=== PATIENT | female | born 1955 | race Caucasian/White ===

== ENCOUNTER → 2016-11-19 | Outpatient (CLI) | payer BC ==
[~2016-11-19] MED LIST: ATROPINE SULFATE 0.1 MG/ML 10ML SYRINGE ONE; DOBUTamine DRIP for NUC MED 500 MG in DEXTROSE/WATER 1 250ML.BAG IV ONE; METOPROLOL TARTRATE 5 MG/5 ML VIAL IVP ONE
--- NOTE | 2016-11-19 17:42 | ECHOS ---
DATE OF SERVICE: 11/19/2016 AGE: 60Y SEX: F HT: 5' 10" WT: 220 lbs. Protocol Ethan: Others: Dobutamine stress echo Stage: 30 mcg/kg per minute Dur. of Exercise: 7:45 *Heart Rate Blood Pressure *Rest: 61 Rest: 101/54 * *Max. Achieved: 146 Maximum BP: 95/37 85% PMHR: 134 100% PMHR: 158 *METS: INDICATIONS: Chest pain. MEDICATIONS: Nitroglycerin, metoprolol, clopidogrel, bisulfate, atorvastatin, isosorbide, Lisinopril, Advair, Zyrtec, Farxiga, escitalopram, Flonase. STRESS DATA: Pre-testing physical examination showed heart rate of 61, pressure 101/ ( ) mmHg. Baseline EKG showed sinus mechanism. Ten micrograms per kilogram per minute of Dobutamine was initially and increased to 30 mcg/kg per minute. We gave the patient 2 mg of atropine to enhance the heart rate. With dobutamine and atropine the patient achieved a maximum heart rate of 146, which is about 100% of maximum predicted heart rate. Maximum blood pressure was 95/37 mmHg. Clinically the patient did not have any symptoms of chest pain or discomfort. The EKG showed about 0.5 mm down ( ) ST-segment changes. ECHOCARDIOGRAM IMAGES: Echocardiogram images from parasternal long axis view, parasternal short axis view, apical 4 chambers and apical 2-chamber view were obtained as the baseline images at low-dose dobutamine infusion, at peak heart rate, as well as on recovery. The echocardiogram images showed good augmentation in the left ventricular systolic function without any evidence of wall motion abnormalities consistent with ischemia. CONCLUSION: 1. Mild EKG changes in response to dobutamine. 2. Normal echocardiogram in response to dobutamine.
== END | disposition home or self-care (01) ==
LOC: RADNMMAIN 10:09
PROVIDERS: ATTEND Family Medicine
DX: I25.10 Atherosclerotic heart disease of native coronary artery without angina pectoris (principal)
CPT/HCPCS: 93017; 93350; J1250

== ENCOUNTER → 2016-11-29 | Outpatient (CLI) | payer BC ==
--- NOTE | 2016-12-02 09:14 | MM ---
Reason for exam: screening (asymptomatic). Last mammogram was performed 1 year and 1 month ago. History: Patient is postmenopausal. Family history of breast cancer in mother at age 65. Benign US LT VAD breast biopsy of the left breast, October 07, 2013. Benign US RT VAD breast biopsy of the right breast, August 04, 2012. Benign US LT VAD breast biopsy of the left breast, August 04, 2012. Benign excisional biopsy of the left breast. Physical Findings: A clinical breast exam by your physician is recommended on an annual basis and results should be correlated with mammographic findings. MG Screening Mammo w CAD Bilateral CC and MLO view(s) were taken. Prior study comparison: October 24, 2015, bilateral MG 3d diag mammo w/cad [facility]. September 28, 2014, bilateral MG diagnostic mammo w CAD [facility]. The breast tissue is heterogeneously dense. This may lower the sensitivity of mammography. Stable lymph node in the left axilla. No significant changes when compared with prior studies. ASSESSMENT: Benign, BI-RAD 2 RECOMMENDATION: Routine screening mammogram of both breasts in 1 year.
== END | disposition home or self-care (01) ==
LOC: RADMAMWWP 07:08
PROVIDERS: ATTEND Family Medicine
DX: Z12.31 Encounter for screening mammogram for malignant neoplasm of breast (principal)

== ENCOUNTER → 2018-01-20 | Outpatient (CLI) | payer BC ==
--- NOTE | 2018-01-21 11:18 | MM ---
Reason for exam: screening (asymptomatic). Last mammogram was performed 1 year and 2 months ago. History: Patient is postmenopausal. Family history of breast cancer in mother at age 65. Benign US LT VAD breast biopsy of the left breast, October 07, 2013. Benign US RT VAD breast biopsy of the right breast, August 04, 2012. Benign US LT VAD breast biopsy of the left breast, August 04, 2012. Benign excisional biopsy of the left breast. Physical Findings: A clinical breast exam by your physician is recommended on an annual basis and results should be correlated with mammographic findings. MG Screening Mammo w CAD Bilateral CC and MLO view(s) were taken. Prior study comparison: November 29, 2016, bilateral MG screening mammo w CAD. October 24, 2015, bilateral MG 3d diag mammo w/cad [facility]. The breast tissue is heterogeneously dense. This may lower the sensitivity of mammography. Finding: There are typically benign round calcifications in both breasts. Previous mammotome biopsy in the right and left breast x 2. There is a chronic nodularity bilaterally. There is no discrete abnormality. ASSESSMENT: Benign, BI-RAD 2 RECOMMENDATION: Routine screening mammogram of both breasts in 1 year.
== END | disposition home or self-care (01) ==
LOC: RADMAMWWP 09:56
PROVIDERS: ATTEND Family Medicine
DX: Z12.31 Encounter for screening mammogram for malignant neoplasm of breast (principal)
CPT/HCPCS: 77067

== ENCOUNTER → 2018-07-14 | Outpatient (CLI) | payer BC ==
[2018-07-14 13:43] LABS: ALT 66 U/L (9-52); AST 36 U/L (14-36); Cholesterol 176 mg/dL (<200); HDL Cholesterol 36 mg/dL (40-60); LDL Cholesterol,Calculated 90 mg/dL (0-99); Triglycerides 250 mg/dL (<150)
== END ==
LOC: LABWHC1 12:50
PROVIDERS: ATTEND Internal Medicine Cardiovascular Disease
DX: E78.2 Mixed hyperlipidemia (principal)
CPT/HCPCS: 36415; 80061; 84450; 84460

== ENCOUNTER → 2019-02-16 | Outpatient (CLI) | payer MEDICARE ==
--- NOTE | 2019-02-17 10:47 | MM ---
Reason for exam: screening (asymptomatic). Last mammogram was performed 1 year and 1 month ago. History: Patient is postmenopausal. Family history of breast cancer in mother at age 65. Benign US LT VAD breast biopsy of the left breast, October 07, 2013. Benign US RT VAD breast biopsy of the right breast, August 04, 2012. Benign US LT VAD breast biopsy of the left breast, August 04, 2012. Benign excisional biopsy of the left breast. Physical Findings: A clinical breast exam by your physician is recommended on an annual basis and results should be correlated with mammographic findings. MG Screening Mammo w CAD Bilateral CC and MLO view(s) were taken. Prior study comparison: January 20, 2018, bilateral MG screening mammo w CAD. November 29, 2016, bilateral MG screening mammo w CAD. The breast tissue is heterogeneously dense. This may lower the sensitivity of mammography. Stable benign calcifications. There is chronic nodularity bilaterally. There is no discrete abnormality. No significant changes when compared with prior studies. ASSESSMENT: Benign, BI-RAD 2 RECOMMENDATION: Routine screening mammogram of both breasts in 1 year.
== END | disposition home or self-care (01) ==
LOC: RADMAMWWP 11:26
PROVIDERS: ATTEND Family Medicine
DX: Z12.31 Encounter for screening mammogram for malignant neoplasm of breast (principal)
CPT/HCPCS: 77067

== ENCOUNTER → 2020-07-25 | Outpatient (CLI) | payer MEDICARE ==
--- NOTE | 2020-07-27 11:28 | MM ---
Reason for exam: screening (asymptomatic). Last mammogram was performed 1 year and 5 months ago. History: Patient is postmenopausal. Family history of breast cancer in mother at age 65. Benign US LT VAD breast biopsy of the left breast, October 07, 2013. Benign US RT VAD breast biopsy of the right breast, August 04, 2012. Benign US LT VAD breast biopsy of the left breast, August 04, 2012. Benign excisional biopsy of the left breast. Physical Findings: A clinical breast exam by your physician is recommended on an annual basis and results should be correlated with mammographic findings. MG 3D Screening Mammo W/Cad Bilateral CC and MLO view(s) were taken. Prior study comparison: February 16, 2019, bilateral MG screening mammo w CAD. January 20, 2018, bilateral MG screening mammo w CAD. There are scattered fibroglandular densities. Finding #1: There are circumscribed round oval masses in both breasts. Finding #2: There are calcifications in both breasts. No significant changes in finding since February 16, 2019 and January 20, 2018. ASSESSMENT: Benign, BI-RAD 2 RECOMMENDATION: Routine screening mammogram of both breasts in 1 year.
== END | disposition home or self-care (01) ==
LOC: RADMAMWWP 15:09
DX: Z12.31 Encounter for screening mammogram for malignant neoplasm of breast (principal)
CPT/HCPCS: 77063; 77067

== ENCOUNTER → 2021-08-23 | Outpatient (CLI) | payer MEDICARE ==
--- NOTE | 2021-08-27 10:00 | MM ---
Reason for exam: screening (asymptomatic). Last mammogram was performed 1 year and 1 month ago. History: Patient is postmenopausal. Family history of breast cancer in mother at age 65. Benign US LT VAD breast biopsy of the left breast, October 07, 2013. Benign US RT VAD breast biopsy of the right breast, August 04, 2012. Benign US LT VAD breast biopsy of the left breast, August 04, 2012. Benign excisional biopsy of the left breast. Physical Findings: A clinical breast exam by your physician is recommended on an annual basis and results should be correlated with mammographic findings. MG 3D Screening Mammo W/Cad Bilateral CC and MLO view(s) were taken. XCCL view(s) were taken of the left breast. Prior study comparison: July 25, 2020, bilateral MG 3d screening mammo w/cad. February 16, 2019, bilateral MG screening mammo w CAD. There are scattered fibroglandular densities. Previous mammotome biopsy in the right breast and left breast x 2 with associated axillary nodularity, unchanged. There is chronic nodularity in the right breast. No significant changes when compared with prior studies. ASSESSMENT: Benign, BI-RAD 2 RECOMMENDATION: Routine screening mammogram of both breasts in 1 year.
== END | disposition home or self-care (01) ==
LOC: RADMAMWWP 14:01
PROVIDERS: ATTEND Family Medicine
DX: Z12.31 Encounter for screening mammogram for malignant neoplasm of breast (principal); Z80.3 Family history of malignant neoplasm of breast; Z78.0 Asymptomatic menopausal state
CPT/HCPCS: 77063; 77067

== ENCOUNTER 2021-08-24 06:36 | Day surgery (SDC) | payer MEDICARE ==
[2021-08-22 14:58] VITALS: BMI 29.2
[~2021-08-24 06:36] MED LIST changes: -ATROPINE SULFATE 0.1 MG/ML 10ML SYRINGE ONE; -DOBUTamine DRIP for NUC MED 500 MG in DEXTROSE/WATER 1 250ML.BAG IV ONE; +LACTATED RINGERS 1,000 ML IV SCH; -METOPROLOL TARTRATE 5 MG/5 ML VIAL IVP ONE
[2021-08-24 07:16] LABS: Glucose,Whole Blood 197 mg/dL (75-99)
[2021-08-24 07:16] LABS: Glucose,Whole Blood 181 mg/dL (75-99)
[2021-08-24 07:19] VITALS: RESP 16; TEMP 98.9
[2021-08-24] MEDS ORDERED: LIDOCAINE 1% (10MG/ML) FOR IV START INTRADERMA ONE (07:20)
[2021-08-24] MEDS ORDERED: PROPOFOL 10 MG/ML 20 ML VIAL IV ONE (07:27)
[2021-08-24] MEDS ORDERED: LIDOCAINE 1% INJ 10MG/ML (20 ML MDV) ONE (07:27)
--- NOTE | 2021-08-24 07:53 | P.PCN ---
Date of Procedure: 08/24/21 Procedure(s) Performed: BRIEF HISTORY: Patient is a 65-year-old pleasant white female scheduled for an elective colonoscopy as a part of screening for colorectal neoplasia. She has strong family history of colon cancer diagnosed in her father and paternal grandfather in his 60s and 70s respectively. PROCEDURE PERFORMED: Colonoscopy with biopsy and snare polypectomy. PREOPERATIVE DIAGNOSIS: Screening for colon cancer/family history of colon cancer. IV sedation per Anesthesia. PROCEDURE: After informed consent was obtained, the patient, was brought into the endoscopy unit. IV sedation was administered by Anesthesia under continuous monitoring. Digital rectal examination was normal. Initially the Olympus CF-160 flexible video colonoscope was then inserted in the rectum, gradually advanced into the cecum without any difficulty. Careful examination was performed as the scope was gradually being withdrawn. Ileocecal valve and the appendiceal orifice were visualized and appeared normal. Prep was excellent. Mucosa of the cecum, ascending colon, transverse colon, appeared normal. In the transverse colon there were 3 and 4 mm polyps removed by cold biopsy. Rest of the descending colon, sigmoid colon, and rectum appeared normal. Rectum there was a 1 cm flat polyp that was removed by snare polypectomy. Moderate left-sided diverticulosis seen. Retroflexion was performed in the rectum and no lesions were seen. The patient tolerated the procedure well. IMPRESSION: 3 and 4 mm transverse colon polyp status post cold biopsy 1 cm flat rectal polyp status post-polypectomy Moderate left-sided diverticulosis RECOMMENDATIONS: Findings of this examination were discussed with the patient as well as her family. She was advised to follow with the biopsy results and have a repeat colonoscopy in in 5 years from now because of the strong family history of colon cancer. .
[2021-08-24 08:11] VITALS: BP 116/74; PULSE 62
== END 2021-08-24 08:37 | disposition home or self-care (01) ==
LOC: ORWHC2ENDO 06:36
PROVIDERS: ATTEND Internal Medicine Gastroenterology
DX: Z12.11 Encounter for screening for malignant neoplasm of colon (principal); D12.3 Benign neoplasm of transverse colon; K57.30 Diverticulosis of large intestine without perforation or abscess without bleeding; K62.1 Rectal polyp; Z80.0 Family history of malignant neoplasm of digestive organs
CPT/HCPCS: 45380; 45385; 88305; J2001; J2704

== ENCOUNTER 2022-07-02 12:22 | Emergency (ER) | payer MEDICARE ==
[2022-07-02] MEDS ORDERED: SODIUM CHLORIDE 0.9% 1,000 ML IV STA (12:54)
--- NOTE | 2022-07-02 12:56 | ED ---
General Adult HPI - General Chief complaint: Shortness of Breath Stated complaint: SOB Time Seen by Provider: 07/02/22 12:25 Source: patient, EMS Mode of arrival: EMS Limitations: no limitations - History of Present Illness Initial comments: Dictation was produced using [employer] dictation software. please excuse any grammatical, word or spelling errors. Chief Complaint: 66-year-old female presents to the emergency department for shortness of breath History of Present Illness: 66-year-old female she began having shortness of breath starting at 10 AM this morning. Patient was driving when her symptoms began. Patient has a history of asthma.*Been admitted to the hospital for asthma before. Patient states her symptoms feel like an asthma attack she had in the past for which she went to an urgent care and was told to come to the emergency department. She has history of heart attack. She does not know if she has a history of heart failure. Denies any fever. No cough or constitutional symptoms. She does have some mild pleuritic bilateral lower chest pain. Denies any history of blood clots. She does not take any antic oagulation medications. She does not complain of any tingling to her lower extremities. The ROS documented in this emergency department record has been reviewed and confirmed by me. Those systems with pertinent positive or negative responses have been documented in the HPI. All other systems are other negative and/or noncontributory. PHYSICAL EXAM: General Impression: Alert and oriented x3, not in acute distress HEENT: Normocephalic atraumatic, extra-ocular movements intact, pupils equal and reactive to light bilaterally, mucous membranes moist. Cardiovascular: Heart regular rate and rhythm Chest: Able to complete full sentences, no retractions, no tachypnea, clear to auscultation bilaterally Abdomen: abdomen soft, non-tender, non-distended, no organomegaly Musculoskeletal: Pulses present and equal in all extremities, no peripheral edema Motor: no focal deficits noted Neurological: CN II-XII grossly intact, no focal motor or sensory deficits noted Skin: Intact with no visualized rashes Psych: Normal affect and mood ED course: 66-year-old female presents emergency department for dyspnea. Patient's vital signs upon arrival shows hypoxia 85, respiratory rate 26, rest of vital signs within acceptable limits. She's not tachycardic. She has clear lung sounds per she does not complaining of any DVT suspicious symptoms. EKG is unremarkable. Laboratory evaluation obtained. CBC unremarkable. Coag panel is negative. D- dimer is elevated at 1.15. Metabolic panel shows Acidosis with bicarb of 15 and anion gap 20. Marker suggest dehydration. Glucose 222. Lactic acidosis initially 2.5. She given IV fluids with repeat lactic acid level I.5. Urinalysis shows 10 white blood cells. For glucose and 3+ ketones. Medications were reviewed. Patient is no longer taking Farxiga. She only takes [place] injections weekly. Patient reevaluated at bedside at 5:20 PM after being observed in the emergency department for approximately 5 hours. Patient is much more well-appearing. There is likely component of anxiety. She is breathing comfortably in no acute distress patient is smiling with her family member at the bedside. As recommended the patient be admitted for medical monitoring IV fluids and repeat blood work in ENT see if there is correction of Acidosis. She refused and states that she feels well to be discharge. She does appear well with stable vitals. She is no longer respiratory distress. Patient will be discharged with strict return precautions. Patient told to follow-up with her primary care doctor as soon as possible. EKG interpretation: Ventricular rate 76, sinus rhythm,. 120, QS 101, QTC 429. No ME prolongation, no QTC prolongation, no ST or T-wave changes noted. EKG compared to 07/29/2016 showing no changes. Overall, this EKG is unremarkable - Related Data Home Medications Medication Instructions Recorded Confirmed Multivitamins, Thera [Multivitamin 1 tab PO DAILY 07/29/16 07/02/22 (formulary)] Atorvastatin [Lipitor] 80 mg PO DAILY 08/22/21 07/02/22 Metoprolol Tartrate [Lopressor] 25 mg PO DAILY 08/22/21 07/02/22 Albuterol Nebulized [Ventolin 2.5 mg INHALATION RT-QID PRN 07/02/22 07/02/22 Nebulized] Dulaglutide [Trulicity] 1.5 mg SQ MO 07/02/22 07/02/22 Dupilumab [Dupixent Syringe] 300 mg SQ Q15D 07/02/22 07/02/22 Fluticasone Propion/Salmeterol 1 puff INHALATION RT-BID 09/20/22 09/20/22 [Advair 100-50 Diskus] Lisinopril [Prinivil] 5 mg PO DAILY 07/02/22 07/02/22 Nitroglycerin Sl Tabs [Nitrostat] 0.4 mg SL Q5M PRN 07/02/22 07/02/22 traZODone HCL [Trazodone HCl] 150 mg PO HS 07/02/22 07/02/22 Previous Rx's Medication Instructions Recorded Isosorbide Mononitrate ER [Imdur] 30 mg PO DAILY #30 tab.er.24h 08/03/16 Allergies Allergy/AdvReac Type Severity Reaction Status Date / Time No Known Allergies Allergy Verified 07/02/22 13:27 Review of Systems ROS Statement: Those systems with pertinent positive or pertinent negative responses have been documented in the HPI. ROS Other: All systems not noted in ROS Statement are negative. Past Medical History Past Medical History: Asthma, Diabetes Mellitus Additional Past Medical History / Comment(s): Type 2 History of Any Multi-Drug Resistant Organisms: None Reported Past Surgical History: Breast Surgery Additional Past Surgical History / Comment(s): BENIGN LUMP LEFT BREAST Past Anesthesia/Blood Transfusion Reactions: No Reported Reaction Past Psychological History: No Psychological Hx Reported Past Alcohol Use History: None Reported General Exam Limitations: no limitations Course Vital Signs 07/02/22 07/02/22 07/02/22 12:23 12:37 13:08 Temperature 97.7 F Pulse Rate 65 79 Respiratory 26 H 26 H 24 Rate Blood Pressure 137/97 136/77 O2 Sat by Pulse 85 L 98 Oximetry 07/02/22 07/02/22 13:45 16:05 Temperature 98.4 F Pulse Rate 65 63 Respiratory 20 18 Rate Blood Pressure 131/68 112/80 O2 Sat by Pulse 99 98 Oximetry Medical Decision Making - Lab Data Result diagrams: 07/02/22 12:49 07/02/22 12:49 Lab Results 07/02/22 07/02/22 07/02/22 Range/Units 12:49 12:49 12:49 WBC 9.1 (3.8-10.6) k/uL RBC 5.81 H (3.80-5.40) m/uL Hgb 16.6 H (11.4-16.0) gm/dL Hct 50.1 H (34.0-46.0) % MCV 86.2 (80.0-100.0) fL MCH 28.6 (25.0-35.0) pg MCHC 33.1 (31.0-37.0) g/dL RDW 12.7 (11.5-15.5) % Plt Count 320 (150-450) k/uL MPV 7.3 Neutrophils % 64 % Lymphocytes % 28 % Monocytes % 5 % Eosinophils % 1 % Basophils % 1 % Neutrophils # 5.8 (1.3-7.7) k/uL Lymphocytes # 2.6 (1.0-4.8) k/uL Monocytes # 0.4 (0-1.0) k/uL Eosinophils # 0.1 (0-0.7) k/uL Basophils # 0.1 (0-0.2) k/uL PT 10.4 (9.0-12.0) sec INR 0.9 (<1.2) APTT 20.5 L (22.0-30.0) sec D-Dimer 1.15 H (<0.60) mg/L FEU Sodium 138 (137-145) mmol/L Potassium 4.5 (3.5-5.1) mmol/L Chloride 103 (98-107) mmol/L Carbon Dioxide 15 L (22-30) mmol/L Anion Gap 20 mmol/L BUN 20 H (7-17) mg/dL Creatinine 0.84 (0.52-1.04) mg/dL Est GFR (CKD-EPI)AfAm 83 (>60 ml/min/1.73 sqM) Est GFR (CKD-EPI)NonAf 72 (>60 ml/min/1.73 sqM) Glucose 222 H (74-99) mg/dL Lactic Ac Sepsis Rflx Plasma Lactic Acid Mani (0.7-2.0) mmol/L Calcium 10.2 (8.4-10.2) mg/dL Magnesium 1.9 (1.6-2.3) mg/dL Total Bilirubin 0.9 (0.2-1.3) mg/dL AST 26 (14-36) U/L ALT 22 (4-34) U/L Alkaline Phosphatase 108 (38-126) U/L Troponin I (0.000-0.034) ng/mL NT-Pro-B Natriuret Pep pg/mL Total Protein 7.9 (6.3-8.2) g/dL Albumin 4.7 (3.5-5.0) g/dL Urine Color Urine Appearance (Clear) Urine pH (5.0-8.0) Ur Specific Mead (1.001-1.035) Urine Protein (Negative) Urine Glucose (UA) (Negative) Urine Ketones (Negative) Urine Blood (Negative) Urine Nitrite (Negative) Urine Bilirubin (Negative) Urine Urobilinogen (<2.0) mg/dL Ur Leukocyte Esterase (Negative) Urine RBC (0-5) /hpf Urine WBC (0-5) /hpf Ur Squamous Epith Cells (0-4) /hpf Hyaline Casts (0-2) /lpf 07/02/22 07/02/22 07/02/22 Range/Units 12:49 12:49 12:49 WBC (3.8-10.6) k/uL RBC (3.80-5.40) m/uL Hgb (11.4-16.0) gm/dL Hct (34.0-46.0) % MCV (80.0-100.0) fL MCH (25.0-35.0) pg MCHC (31.0-37.0) g/dL RDW (11.5-15.5) % Plt Count (150-450) k/uL MPV Neutrophils % % Lymphocytes % % Monocytes % % Eosinophils % % Basophils % % Neutrophils # (1.3-7.7) k/uL Lymphocytes # (1.0-4.8) k/uL Monocytes # (0-1.0) k/uL Eosinophils # (0-0.7) k/uL Basophils # (0-0.2) k/uL PT (9.0-12.0) sec INR (<1.2) APTT (22.0-30.0) sec D-Dimer (<0.60) mg/L FEU Sodium (137-145) mmol/L Potassium (3.5-5.1) mmol/L Chloride (98-107) mmol/L Carbon Dioxide (22-30) mmol/L Anion Gap mmol/L BUN (7-17) mg/dL Creatinine (0.52-1.04) mg/dL Est GFR (CKD-EPI)AfAm (>60 ml/min/1.73 sqM) Est GFR (CKD-EPI)NonAf (>60 ml/min/1.73 sqM) Glucose (74-99) mg/dL Lactic Ac Sepsis Rflx Plasma Lactic Acid Mani 2.5 H* (0.7-2.0) mmol/L Calcium (8.4-10.2) mg/dL Magnesium (1.6-2.3) mg/dL Total Bilirubin (0.2-1.3) mg/dL AST (14-36) U/L ALT (4-34) U/L Alkaline Phosphatase (38-126) U/L Troponin I <0.012 (0.000-0.034) ng/mL NT-Pro-B Natriuret Pep 35 pg/mL Total Protein (6.3-8.2) g/dL Albumin (3.5-5.0) g/dL Urine Color Urine Appearance (Clear) Urine pH (5.0-8.0) Ur Specific [place] (1.001-1.035) Urine Protein (Negative) Urine Glucose (UA) (Negative) Urine Ketones (Negative) Urine Blood (Negative) Urine Nitrite (Negative) Urine Bilirubin (Negative) Urine Urobilinogen (<2.0) mg/dL Ur Leukocyte Esterase (Negative) Urine RBC (0-5) /hpf Urine WBC (0-5) /hpf Ur Squamous Epith Cells (0-4) /hpf Hyaline Casts (0-2) /lpf 07/02/22 07/02/22 07/02/22 Range/Units 13:29 14:40 16:40 WBC (3.8-10.6) k/uL RBC (3.80-5.40) m/uL Hgb (11.4-16.0) gm/dL Hct (34.0-46.0) % MCV (80.0-100.0) fL MCH (25.0-35.0) pg MCHC (31.0-37.0) g/dL RDW (11.5-15.5) % Plt Count (150-450) k/uL MPV Neutrophils % % Lymphocytes % % Monocytes % % Eosinophils % % Basophils % % Neutrophils # (1.3-7.7) k/uL Lymphocytes # (1.0-4.8) k/uL Monocytes # (0-1.0) k/uL Eosinophils # (0-0.7) k/uL Basophils # (0-0.2) k/uL PT (9.0-12.0) sec INR (<1.2) APTT (22.0-30.0) sec D-Dimer (<0.60) mg/L FEU Sodium (137-145) mmol/L Potassium (3.5-5.1) mmol/L Chloride (98-107) mmol/L Carbon Dioxide (22-30) mmol/L Anion Gap mmol/L BUN (7-17) mg/dL Creatinine (0.52-1.04) mg/dL Est GFR (CKD-EPI)AfAm (>60 ml/min/1.73 sqM) Est GFR (CKD-EPI)NonAf (>60 ml/min/1.73 sqM) Glucose (74-99) mg/dL Lactic Ac Sepsis Rflx Y Plasma Lactic Acid Amni 1.5 (0.7-2.0) mmol/L Calcium (8.4-10.2) mg/dL Magnesium (1.6-2.3) mg/dL Total Bilirubin (0.2-1.3) mg/dL AST (14-36) U/L ALT (4-34) U/L Alkaline Phosphatase (38-126) U/L Troponin I (0.000-0.034) ng/mL NT-Pro-B Natriuret Pep pg/mL Total Protein (6.3-8.2) g/dL Albumin (3.5-5.0) g/dL Urine Color Yellow Urine Appearance Clear (Clear) Urine pH 5.0 (5.0-8.0) Ur Specific [place] 1.050 H (1.001-1.035) Urine Protein Negative (Negative) Urine Glucose (UA) 4+ H (Negative) Urine Ketones 3+ H (Negative) Urine Blood Negative (Negative) Urine Nitrite Negative (Negative) Urine Bilirubin Negative (Negative) Urine Urobilinogen <2.0 (<2.0) mg/dL Ur Leukocyte Esterase Moderate H (Negative) Urine RBC 2 (0-5) /hpf Urine WBC 10 H (0-5) /hpf Ur Squamous Epith Cells 4 (0-4) /hpf Hyaline Casts 1 (0-2) /lpf Disposition Clinical Impression: Dyspnea Disposition: HOME SELF-CARE Condition: Fair Instructions (If sedation given, give patient instructions): Dehydration (ED) Is patient prescribed a controlled substance at d/c from ED?: No Referrals: Chris Banks MD [Primary Care Provider] - 1-2 days Time of Disposition: 17:21
[2022-07-02 12:59] LABS: Basophils # (A) 0.1 k/uL (0-0.2); Basophils % (A) 1 %; Eosinophils # (A) 0.1 k/uL (0-0.7); Eosinophils % (A) 1 %; HCT 50.1 % (34.0-46.0); HGB 16.6 gm/dL (11.4-16.0); Lymphocytes # (A) 2.6 k/uL (1.0-4.8); Lymphocytes % (A) 28 %; MCH 28.6 pg (25.0-35.0); MCHC 33.1 g/dL (31.0-37.0); MCV 86.2 fL (80.0-100.0); Mean Platelet Volume 7.3; Monocytes # (A) 0.4 k/uL (0-1.0); Monocytes % (A) 5 %; Neutrophils # (A) 5.8 k/uL (1.3-7.7); Neutrophils % (A) 64 %; Platelet Count 320 k/uL (150-450); RBC 5.81 m/uL (3.80-5.40); RDW 12.7 % (11.5-15.5); WBC 9.1 k/uL (3.8-10.6)
--- NOTE | 2022-07-02 13:11 | XR ---
EXAMINATION TYPE: XR chest 1V portable DATE OF EXAM: 07/02/2022 COMPARISON: Chest x-ray 07/29/2016 HISTORY: Dyspnea, shortness of breath TECHNIQUE: Single frontal view of the chest is obtained. FINDINGS: There is no focal air space opacity, pleural effusion, or pneumothorax seen. The cardiac silhouette size is within normal limits. There are prominent lung volumes, patient is rotated. There are overlying artifacts. The osseous structures are intact. IMPRESSION: No acute process.
[2022-07-02 13:19] LABS: INR 0.9 (<1.2); Prothrombin Time 10.4 sec (9.0-12.0)
[2022-07-02 13:29] LABS: Albumin 4.7 g/dL (3.5-5.0); Calcium 10.2 mg/dL (8.4-10.2); Magnesium 1.9 mg/dL (1.6-2.3); Potassium 4.5 mmol/L (3.5-5.1); Total Bilirubin 0.9 mg/dL (0.2-1.3); Total Protein 7.9 g/dL (6.3-8.2)
[2022-07-02 13:53] LABS: Partial Thromboplastin Time 20.5 sec (22.0-30.0)
--- NOTE | 2022-07-02 15:18 | CT ---
EXAMINATION TYPE: CT angio chest CT DLP: 362.5 mGycm, Automated exposure control for dose reduction was used. DATE OF EXAM: 07/02/2022 3:04 PM COMPARISON: Chest radiograph from same day. CLINICAL INDICATION:Female, 66 years old with history of positive D-dimer; SOB and elevated D-Dimer TECHNIQUE/CONTRAST: CTA scan of the thorax is performed with IV Contrast, patient injected with 57 mL of Isovue 370, pulm onary embolism protocol. MIP images are created and reviewed. FINDINGS: Pulmonary Artery: There is no evidence for a filling defect within the pulmonary vasculature to sugge st acute pulmonary embolism. The pulmonary artery is of normal size. Lungs/Pleura: Biapical pleural-parenchymal scarring. Bibasilar subsegmental atelectasis. No focal con solidation or pneumothorax. Right lower lobe 5 mm pulmonary nodule (series [id number], image 84). Airway: Large airways are patent. Heart: The heart is mildly enlarged for size. No pericardial effusion. Coronary arterial calcificatio ns. Vasculature: No evidence of aortic aneurysm. Mediastinum: No gross evidence of adenopathy. Musculoskeletal: Central compression deformity versus Schmorl's node involving the superior endplate of the T11 vertebral body. Correlate with point tenderness. Degenerative changes of the visualized sp ine. Soft Tissues: No suspicious axillary adenopathy. Lateral left breast 2.4 cm mass with dystrophic calc ifications corresponding to mammography. Favored to represent a fibroadenoma. Lower neck: 0.9 cm hypodense left thyroid lobe nodule.. Upper Abdomen: Colonic diverticulosis without evidence for acute diverticulitis. Diverticula involvin g the third portion of the duodenum. IMPRESSION: 1. No evidence of pulmonary embolism. 2. Right lower lobe 5 mm pulmonary nodule. Optional CT chest in 12 months in a high-risk patient.
[2022-07-02 16:15] VITALS: RESP 18
[2022-07-02 16:56] LABS: Appearance,Urine Clear (Clear); Bilirubin,Urine Negative (Negative); Blood,Urine Negative (Negative); Color,Urine Yellow; Glucose,Urine (UA) 4+ (Negative); Hyaline Casts,Urine 1 /lpf (0-2); Leukocyte Esterase,Urine Moderate (Negative); Nitrite,Urine Negative (Negative); Protein,Urine Negative (Negative); RBC,Urine 2 /hpf (0-5); Squamous Epithelial Cell,Urine 4 /hpf (0-4); Urobilinogen,Urine <2.0 mg/dL (<2.0); WBC,Urine 10 /hpf (0-5)
[2022-07-02 17:02] LABS: Ketones,Urine 3+ (Negative)
[2022-07-02 17:45] VITALS: BP 112/79; PULSE 90; TEMP 97.8
== END 2022-07-02 17:45 | disposition home or self-care (01) ==
LOC: EC 12:22
DX: R06.00 Dyspnea, unspecified (principal); J45.909 Unspecified asthma, uncomplicated; E11.9 Type 2 diabetes mellitus without complications
CPT/HCPCS: 36415; 93005; 85379; 83880; 80053; 83605; 83735; 84484; 85025; 85610; 85730; 81001; 71045; 71275; 99285; 96360; Q9967

== ENCOUNTER → 2022-08-28 | Outpatient (CLI) | payer MEDICARE ==
--- NOTE | 2022-08-29 09:07 | MM ---
Reason for Exam: Screening (asymptomatic). Last screening mammogram was performed 12 month(s) ago. Patient History: Menarche at age 11. First Full-Term at age 19. Postmenopausal. Patient used Hormonal Contraceptives for 10 years. Benign Excisional Biopsy on the left side. 10/07/2013, Benign Core Biopsy on the left side. 08/04/2012, Benign Core Biopsy on the left side. 08/04/2012, Benign Core Biopsy on the right side. Mother had breast cancer, age 65. Risk Values: Maida 5 year model risk: 4.9%. NCI Lifetime model risk: 15.2%. Prior Study Comparison: 11/16/2004 Screening Mammogram, [place]. 09/28/2014 Bilateral Diagnostic Mammogram, [facility]. 10/24/2015 Bilateral Diagnostic Mammogram, [facility]. 11/29/2016 Bilateral Screening Mammogram, [facility]. 01/20/2018 Bilateral Screening Mammogram, [facility]. 02/16/2019 Bilateral Screening Mammogram, [facility]. 07/25/2020 Bilateral Screening Mammogram, [facility]. 08/23/2021 Bilateral Screening Mammogram, [facility]. Tissue Density: There are scattered fibroglandular densities. Findings: Analyzed By CAD. There is no suspicious group of microcalcifications or new suspicious mass in either breast. Biopsy clips within both breasts. Unchanged chronic nodularity within both breasts. No significant change from prior exams. Overall Assessment: Benign, BI-RAD 2 Management: Screening Mammogram of both breasts in 1 year. A clinical breast exam by your physician is recommended on an annual basis and results should be correlated with mammographic findings. Electronically signed and approved by: Zoltan Cantu D.O.
== END | disposition home or self-care (01) ==
LOC: RADMAMWWP 14:48
PROVIDERS: ATTEND Family Medicine
DX: Z12.31 Encounter for screening mammogram for malignant neoplasm of breast (principal); Z80.3 Family history of malignant neoplasm of breast; Z78.0 Asymptomatic menopausal state
CPT/HCPCS: 77063; 77067

== ENCOUNTER 2023-03-24 17:30 | Inpatient (IN) | payer MEDICARE ==
--- NOTE | 2023-03-24 17:43 | ED ---
Dizziness HPI - General Source: patient Mode of arrival: ambulatory Limitations: no limitations <Gordo Bacon - Last Filed: 03/24/23 17:41> - General Source: RN notes reviewed, old records reviewed <Beto Redding - Last Filed: 03/24/23 22:33> - General Chief Complaint: Dizziness Stated Complaint: Vertigo, nausea - History of Present Illness Initial Comments: 67-year-old woman presenting to the ED with chief complaint of dizziness. Patient states that since this morning has felt dizziness. Describes this as the room spinning. Associated nausea and vomiting. States that she was seen in urgent care is presents to the rule out a stroke. (Gordo Bacon) 67-year-old female presenting for evaluation of dizziness, dizziness began around 1 AM. Patient presents for evaluation of dizziness and vomiting which has been persistent since 7 AM when the patient woke up. She had symptoms very minimal dizziness at 1 AM but was able to get some sleep. When she woke at 7 AM she had sensation that the room was spinning and his had persistent vomiting throughout. She denied headache. Denied focal numbness or weakness. Denied previous history of CVA. Denied chest pain or abdominal pain. Denied fever. (Beto Redding) - Related Data Home Medications Medication Instructions Recorded Confirmed Multivitamins, Thera [Multivitamin 1 tab PO DAILY 07/29/16 07/02/22 (formulary)] Atorvastatin [Lipitor] 80 mg PO DAILY 08/22/21 07/02/22 Metoprolol Tartrate [Lopressor] 25 mg PO DAILY 08/22/21 07/02/22 Albuterol Nebulized [Ventolin 2.5 mg INHALATION RT-QID PRN 07/02/22 07/02/22 Nebulized] Dulaglutide [Trulicity] 1.5 mg SQ MO 07/02/22 07/02/22 Dupilumab [Dupixent Syringe] 300 mg SQ Q15D 07/02/22 07/02/22 Fluticasone Propion/Salmeterol 1 puff INHALATION RT-BID 07/02/22 07/02/22 [Advair 100-50 Diskus] Lisinopril [Prinivil] 5 mg PO DAILY 07/02/22 07/02/22 Nitroglycerin Sl Tabs [Nitrostat] 0.4 mg SL Q5M PRN 07/02/22 07/02/22 traZODone HCL [Trazodone HCl] 150 mg PO HS 07/02/22 07/02/22 Previous Rx's Medication Instructions Recorded Isosorbide Mononitrate ER [Imdur] 30 mg PO DAILY #30 tab.er.24h 08/03/16 Allergies Allergy/AdvReac Type Severity Reaction Status Date / Time metformin Allergy Anaphylaxis Verified 03/24/23 17:36 Review of Systems ROS Other: All systems not noted in ROS Statement are negative. <Gordo Bacon - Last Filed: 03/24/23 17:41> ROS Other: All systems not noted in ROS Statement are negative. <Beto Redding - Last Filed: 03/24/23 22:33> ROS Statement: Those systems with pertinent positive or pertinent negative responses have been documented in the HPI. Past Medical History Past Medical History: Asthma, Diabetes Mellitus Additional Past Medical History / Comment(s): Type 2 History of Any Multi-Drug Resistant Organisms: None Reported Past Surgical History: Breast Surgery Additional Past Surgical History / Comment(s): BENIGN LUMP LEFT BREAST Past Anesthesia/Blood Transfusion Reactions: No Reported Reaction Past Psychological History: No Psychological Hx Reported Smoking Status: Never smoker Past Alcohol Use History: None Reported Past Drug Use History: None Reported <Gordo Bacon - Last Filed: 03/24/23 17:41> General Exam Limitations: no limitations <Gordo Bacon - Last Filed: 03/24/23 17:41> General appearance: alert, in no apparent distress Head exam: Present: atraumatic, normocephalic Eye exam: Present: normal appearance, PERRL ENT exam: Present: normal exam Neck exam: Present: normal inspection. Absent: tenderness Respiratory exam: Present: normal lung sounds bilaterally. Absent: respiratory distress, wheezes Cardiovascular Exam: Present: regular rate, normal rhythm GI/Abdominal exam: Present: soft. Absent: distended, tenderness, guarding Extremities exam: Present: normal inspection, normal capillary refill Back exam: Present: normal inspection Neurological exam: Present: alert, oriented X3, CN II-XII intact, motor sensory deficit (Right upper extremity ataxia with [id number]), other (NIH of 1) Skin exam: Present: warm, dry, intact. Absent: cyanosis, diaphoretic <Beto Redding - Last Filed: 03/24/23 22:33> Course <Beto Redding - Last Filed: 03/24/23 22:33> Vital Signs 03/24/23 17:33 Temperature 98.5 F Pulse Rate 65 Respiratory 18 Rate Blood Pressure 119/77 O2 Sat by Pulse 99 Oximetry - Reevaluation(s) Reevaluation #1: 03/24/23 22:31 Patient is not a TPA candidate given the duration of symptoms at the time of presentation and the very low NIH. (Beto Redding) Reevaluation #2: 03/24/23 22:32 CMP results pending. (Beto Redding) Medical Decision Making - Lab Data Result diagrams: 03/24/23 18:06 <Beto Redding - Last Filed: 03/24/23 22:33> - Medical Decision Making Was pt. sent in by a medical professional or institution (GM Akhtar, APPLICATION SERVICES MANAGER, urgent care, hospital, or group home...) When possible be specific @ -No Did you speak to anyone other than the patient for history (EMS, parent, family, police, friend...)? What history was obtained from this source @ -No Did you review nursing and triage notes (agree or disagree)? Why? @ -I reviewed and agree with nursing and triage notes Were old charts reviewed (outside hosp., previous admission, EMS record, old EKG, old radiological studies, urgent care reports/EKG's, group home records)? Report findings @ -No old charts were reviewed Differential Diagnosis (chest pain, altered mental status, abdominal pain women, abdominal pain men, vaginal bleeding, weakness, fever, dyspnea, syncope, headache, dizziness, GI bleed, back pain, seizure, CVA, palpatations, mental health, musculoskeletal)? @ -[Differential CVA Ischemic stroke, hemorrhagic stroke, brain tumor, atypical migraine, Wernicke's encephalopathy, seizure, multiple sclerosis, meningitis, encephalitis, hypoglycemia, Guillain-Ibrahim, electrolytes disturbance, myasthenia gravis.... This is not meant to be an all-inclusive list EKG interpreted by me (3pts min.). @ -EKG: Sinus bradycardia rate of 57, MN interval 137, QRS duration 88, QTC [address] segment elevation. X-rays interpreted by me (1pt min.). @ -None done CT interpreted by me (1pt min.). @ -[CT brain without contrast showing acute versus subacute CVA of the right cerebellar hemisphere U/S interpreted by me (1pt. min.). @ -None done What testing was considered but not performed or refused? (CT, X-rays, U/S, labs)? Why? @ -None What meds were considered but not given or refused? Why? @ -None Did you discuss the management of the patient with other professionals (professionals i.e. DrJerome, PA, APPLICATION SERVICES MANAGER, lab, RT, psych nurse, social work nurse, hot plate plywood press offbearer, teacher, debt recovery officer, casework manager)? Give summary @ -[Dr. Garcia Was smoking cessation discussed for >3mins.? @ -No Was critical care preformed (if so, how long)? @ -No Were there social determinants of health that impacted care today? How? (Homelessness, low income, unemployed, alcoholism, drug addiction, transportation, low edu. Level, literacy, decrease access to med. care, detention, rehab)? @ -No Was there de-escalation of care discussed even if they declined (Discuss DNR or withdrawal of care, Hospice)? DNR status @ -No What co-morbidities impacted this encounter? (DM, HTN, Smoking, COPD, CAD, Canc er, CVA, ARF, Chemo, Hep., AIDS, mental health diagnosis, sleep apnea, morbid obesity)? @ -[Diabetes Was patient admitted / discharged? Hospital course, mention meds given and route, prescriptions, significant lab abnormalities, going to OR and other pertinent info. @ -[67-year-old female who woke with dizziness and vomiting. Patient's sym ptoms have been present for approximately 20 hours at the time my evaluation. She has a subtle ataxia of the right upper extremity. She has no limb weakness, speech is clear. Vital signs are stable. She is in sinus rhythm. CT showing an acute or subacute infarction of the right cerebellar hemisphere. Patient will benefit from further evaluation of acute CVA. She'll be admitted to internal medicine with neurology on consult. She's given aspirin in the emergency department as well as symptomatic treatment including meclizine and Zofran. Undiagnosed new problem with uncertain prognosis? @ -No Drug Therapy requiring intensive monitoring for toxicity (Heparin, Nitro, Insulin, Cardizem)? @ -No Were any procedures done? @ -No Diagnosis/symptom? @ -Cerebellar CVA, vertigo with ataxia Acute, or Chronic, or Acute on Chronic? @ -[Acute Uncomplicated (without systemic symptoms) or Complicated (systemic symptoms)? @ -[Complicated Side effects of treatment? @ -No Exacerbation, Progression, or Severe Exacerbation? @ -No Poses a threat to life or bodily function? How? (Chest pain, [place], [place], pneumonia, PE, COPD, DKA, ARF, appy, cholecystitis, CVA, Diverticulitis, Homicidal, Suicidal, threat to staff... and all critical care pts) @ -[Yes, CVA (Beto Redding) - Lab Data Lab Results 03/24/23 Range/Units 18:06 WBC 13.5 H (3.8-10.6) k/uL RBC 5.48 H (3.80-5.40) m/uL Hgb 16.0 (11.4-16.0) gm/dL Hct 48.6 H (34.0-46.0) % MCV 88.7 (80.0-100.0) fL MCH 29.1 (25.0-35.0) pg MCHC 32.8 (31.0-37.0) g/dL RDW 13.4 (11.5-15.5) % Plt Count 60 L (150-450) k/uL MPV 9.8 Neutrophils % (Manual) 86 % Band Neuts % (Manual) 2 % Lymphocytes % (Manual) 9 % Monocytes % (Manual) 3 % Neutrophils # (Manual) 11.80 H (1.3-7.7) k/uL Lymphocytes # (Manual) 1.22 (1.0-4.8) k/uL Monocytes # (Manual) 0.41 (0-1.0) k/uL Nucleated RBCs 0 (0-0) /100 WBC Manual Slide Review Performed Ovalocytes Present Critical Care Time Critical Care Time: Yes Total Critical Care Time: 35 <Beto Redding - Last Filed: 03/24/23 22:33> Disposition <Gordo Bacon - Last Filed: 03/24/23 17:41> Is patient prescribed a controlled substance at d/c from ED?: No Time of Disposition: 22:33 <Beto Redding - Last Filed: 03/24/23 22:33> Clinical Impression: Cerebrovascular accident (CVA) Disposition: ADMITTED IP TO THIS HOSP Condition: Stable Referrals: Chris Banks MD [Primary Care Provider] - 1-2 days
[2023-03-24 19:08] LABS: HCT 48.6 % (34.0-46.0); MCH 29.1 pg (25.0-35.0); MCHC 32.8 g/dL (31.0-37.0); MCV 88.7 fL (80.0-100.0); Mean Platelet Volume 9.8; Platelet Count 60 k/uL (150-450); RBC 5.48 m/uL (3.80-5.40); RDW 13.4 % (11.5-15.5); WBC 13.5 k/uL (3.8-10.6)
[2023-03-24 19:37] LABS: Band Neutrophils % 2 %; Lymphocytes # (M) 1.22 k/uL (1.0-4.8); Monocytes # (M) 0.41 k/uL (0-1.0); Neutrophils % (M) 86 %; Nucleated Red Blood Cells 0 /100 WBC (0-0); Ovalocytes Present; Total Cells Counted 100
--- NOTE | 2023-03-24 19:52 | CT ---
EXAMINATION TYPE: CT brain wo con CT DLP: 1221.6 mGycm, Automated exposure control for dose reduction was used. DATE OF EXAM: 03/24/2023 7:27 PM COMPARISON: None. CLINICAL INDICATION:Female, 67 years old with history of dizziness, vertigo, N/V TECHNIQUE: Brain: Axial CT images of the brain were obtained with coronal and sagittal reformats created and rev iewed. Contrast used: None. Oral contrast used: None. FINDINGS: Brain: Extra-axial spaces: No abnormal extra-axial fluid collections. Ventricular system: Within normal limits Cerebral parenchyma: Remote right frontal lobe injury. No acute intraparenchymal hemorrhage or mass e ffect. The borja-white junction is well differentiated. Cerebellum: Abnormal borja-white matter loss of differentiation in the right cerebral hemisphere serie s 203 image 16 series 2034 image 45. Mass effect: No evidence of midline shift. Intracranial vasculature: unremarkable Soft tissues: Normal. Calvarium/osseous structures: No depressed skull fracture. Paranasal sinuses and mastoid air cells: Mild scattered paranasal sinus disease. Visualized orbits: Orbital contents are intact. IMPRESSION: 1. Acute/subacute CVA involving the right cerebellar hemisphere further evaluation MRI is recommende d. 2. Remote injury of the right frontal lobe.
[2023-03-24] MEDS ORDERED: ONDANSETRON 4 MG/2 ML VIAL IVP STA (22:06)
[2023-03-24] MEDS ORDERED: ASPIRIN 325 MG TAB PO STA (22:06)
[2023-03-24] MEDS ORDERED: SODIUM CHLORIDE 0.9% 1,000 ML IV ONE (22:06)
[2023-03-24] MEDS ORDERED: MECLIZINE 12.5 MG TAB PO STA (22:06)
[2023-03-24 22:38] LABS: ALT 39 U/L (4-34); AST 25 U/L (14-36); African American GFR (CKD) >90 (>60 ml/min/1.73 sqM); Albumin 4.3 g/dL (3.5-5.0); Alkaline Phosphatase 95 U/L (38-126); Anion Gap 10 mmol/L; Blood Urea Nitrogen 17 mg/dL (7-17); Calcium 9.6 mg/dL (8.4-10.2); Carbon Dioxide 26 mmol/L (22-30); Chloride 107 mmol/L (98-107); Glucose 145 mg/dL (74-99); Non-African American GFR(CKD) 88 (>60 ml/min/1.73 sqM); Potassium 4.7 mmol/L (3.5-5.1); Sodium 143 mmol/L (137-145); Total Bilirubin 0.7 mg/dL (0.2-1.3); Total Protein 7.1 g/dL (6.3-8.2)
[2023-03-24 22:51] LABS: Prothrombin Time 10.4 sec (9.0-12.0)
[2023-03-24 23:28] LABS: Partial Thromboplastin Time 19.9 sec (22.0-30.0)
[2023-03-25] MEDS ORDERED: ALBUTEROL NEBULIZED 2.5 MG/3 ML INHALATION PRN (00:37)
[2023-03-25] MEDS ORDERED: DEXTROSE 50% SYRINGE 50 ML IVP PRN ×2 (00:40)
[2023-03-25] MEDS: traZODone HCL 50 MG TAB PO SCH ×2 (00:51→21:15)
[2023-03-25] MEDS ORDERED: traZODone HCL 100 MG TAB PO SCH (01:00)
--- NOTE | 2023-03-25 01:13 | P.HPIM ---
History of Present Illness H&P Date: 03/24/23 Chief Complaint: vertigo 67 year old female with DM , CAD patient was at her baseline health status till last night when she went to bed around 10 pm she woke up this morning not feeling well, and ended up throwing up every thing she ate during breakfast. then she noticed increased vertigo and nausea , and while she was in the bathroom she could not stand up due to feeling very dizzy and decided to call her daughter for help. she denies any other focal neuro deficits, denies any numbness or tingling, denies any weakness, or facial droop, or changes in speech. patient went to an urgent care first , where she received anti emetic medications, then she was sent to our hospital for further care she denies any head injury , recent illness, fever, chills, tinnitus , changes in vision or hearing .denies any recent falls. or palpitations. she denies any history of stroke. blood clots, recent travel or hospital stay she denies any smoking, illicit drugs or alcohol Review of Systems Pertinent positives as noted in HPI. All other systems were reviewed and are negative Past Medical History Past Medical History: Asthma, Diabetes Mellitus Additional Past Medical History / Comment(s): type II DM, "heart attack" about 5 years ago - no stents History of Any Multi-Drug Resistant Organisms: None Reported Past Surgical History: Breast Surgery Additional Past Surgical History / Comment(s): BENIGN LUMP LEFT BREAST Past Anesthesia/Blood Transfusion Reactions: No Reported Reaction Past Psychological History: No Psychological Hx Reported Smoking Status: Never smoker Past Alcohol Use History: None Reported Past Drug Use History: None Reported Medications and Allergies Home Medications Medication Instructions Recorded Confirmed Type Multivitamins, Thera [Multivitamin 1 tab PO DAILY 07/29/16 03/25/23 History (formulary)] Isosorbide Mononitrate ER [Imdur] 30 mg PO DAILY #30 tab.er.24h 08/03/16 03/25/23 Rx Atorvastatin [Lipitor] 80 mg PO DAILY 08/22/21 03/25/23 History Metoprolol Tartrate [Lopressor] 25 mg PO DAILY 08/22/21 03/25/23 History Albuterol Nebulized [Ventolin 2.5 mg INHALATION RT-QID PRN 07/02/22 07/02/22 History Nebulized] Dulaglutide [Trulicity] 1.5 mg SQ MO 07/02/22 07/02/22 History Dupilumab [Dupixent Syringe] 300 mg SQ Q15D 07/02/22 03/25/23 History Fluticasone Propion/Salmeterol 1 puff INHALATION RT-BID 07/02/22 07/02/22 History [Advair 100-50 Diskus] Lisinopril [Prinivil] 5 mg PO DAILY 07/02/22 03/25/23 History Nitroglycerin Sl Tabs [Nitrostat] 0.4 mg SL Q5M PRN 07/02/22 07/02/22 History traZODone HCL [Trazodone HCl] 375 mg PO HS 07/02/22 03/25/23 History Allergies Allergy/AdvReac Type Severity Reaction Status Date / Time metformin Allergy Anaphylaxis Verified 03/24/23 17:36 Physical Exam Vitals: Vital Signs Temp Pulse Pulse Resp BP BP Pulse Ox 03/25/23 00:00 97.9 F 69 16 147/83 97 03/24/23 23:55 78 18 124/60 96 03/24/23 22:35 74 18 136/78 95 03/24/23 22:15 80 18 136/78 94 L 03/24/23 17:33 98.5 F 65 18 119/77 99 Intake and Output 03/24/23 03/24/23 03/25/23 14:59 22:59 06:59 Other: Weight 86.183 kg 86.183 kg Constitutional: No acute distress, conversant, pleasant Eyes: Anicteric sclerae, moist conjunctiva, Pupils equal round reactive to light ENMT: NC/AT Oropharynx clear, no erythema, or exudates Neck: Supple, no masses, or JVD No carotid bruits No thyromegaly Lungs: Clear to auscultation Clear to percussion Normal respiratory effort, no accessory muscle use Cardiovascular: Heart regular in rate and rhythm, No murmurs, gallops, or rubs No peripheral edema Abdominal: Soft Nontender, no guarding, rebound or rigidity Abdomen moving with respiration Normoactive bowel sounds No hepatomegaly, No splenomegaly No palpable mass No abdominal wall hernia noted Skin: Normal temperature, tone, texture, turgor Extremities: No digital cyanosis No clubbing Pedal pulses intact and symmetrical Radial pulses intact and symmetrical No calf tenderness Psychiatric: Alert and oriented to person, place and time Appropriate affect Neuro Muscles Strength 5/5 in all 4 extremities Sensation to light touch grossly present throughout Cranial nerves II-XII grossly intact finger nose intact on the left side, some hesitation over the right hand, no dysdiadikokinesis , heel payton intact bilateral Lymphatics: no palpable cervical or supraclavicular lymph nodes Results CBC & Chem 7: 03/24/23 18:06 03/24/23 22:18 Labs: Abnormal Lab Results - Last 24 Hours (Table) 03/24/23 03/24/23 03/24/23 Range/Units 18:06 22:18 22:18 WBC 13.5 H (3.8-10.6) k/uL RBC 5.48 H (3.80-5.40) m/uL Hct 48.6 H (34.0-46.0) % Plt Count 60 L (150-450) k/uL Neutrophils # (Manual) 11.80 H (1.3-7.7) k/uL APTT 19.9 L (22.0-30.0) sec Glucose 145 H (74-99) mg/dL ALT 39 H (4-34) U/L Thrombosis Risk Factor Assmnt - Choose All That Apply Any of the Below Risk Factors Present?: Yes Each Factor Represents 1 point: Obesity (BMI >25) Other Risk Factors: Yes Each Risk Factor Represents 2 Points: Age 61-74 years Other congenital or acquired thrombophilia - If yes, enter type in comment: No Thrombosis Risk Factor Assessment Total Risk Factor Score: 3 Thrombosis Risk Factor Assessment Level: Moderate Risk Assessment and Plan Assessment: 67 year old female with DM , presented due to vertigo and repeated vom iting, I discussed the case with ED doc, she is found to have acute / subacute right cerebellar hemisphere stroke , I accepted the admission for stroke management and workup with anticipated length of stay > 2 midnights acute / subacute right hemispheric cerebellar stroke neuro checks fall precautions atorvastatin 80 mg qhs aspirin daily Po MRI of the brain without contrast carotid US echocardiogram check lipid panel neurology consult thrombocytopenia no bleeding unknown cause possible transient , follow up cbc count and trend DM insulin sliding scale intermittent asthma inhalers PRN h/o CAD hypertension ASA, statin quality assurance monitor resume isosorbide and metoprolol hold lisinopril permissive hypertension X 24 hrs full code DVT PPX mechanical
[2023-03-25] MEDS: SODIUM CHLORIDE 0.9% 1,000 ML IV SCH ×2 (05:49→23:13)
[2023-03-25 06:28] LABS: Glucose,Whole Blood 116 mg/dL (70-110)
[2023-03-25] MEDS: INSULIN ASPART (NovoLOG) 100 UNIT/ML VIAL SQ SCH ×4 (06:28→21:15)
--- NOTE | 2023-03-25 08:41 | US ---
EXAMINATION TYPE: US carotid duplex BILAT DATE OF EXAM: 03/24/2023 COMPARISON: 07/31/16 CLINICAL INDICATION: Female, 67 years old with history of Stenosis; Hx of dizziness this morning TECHNIQUE: Carotid duplex ultrasound examination. Indirect Doppler criteria was utilized. FINDINGS: EXAM MEASUREMENTS: RIGHT: Peak Systolic Velocity (PSV) cm/sec ----- Right CCA: 109.7 ----- Right ICA: 111.3 ----- Right ECA: 169.4 ICA/CCA ratio: 1.0 RIGHT: End Diastole cm/sec ----- Right CCA: 24.1 ----- Right ICA: 43.4 ----- Right ECA: 16.0 LEFT: Peak Systolic Velocity (PSV) cm/sec ----- Left CCA: 87.1 ----- Left ICA: 106.4 ----- Left ECA: 127.9 ICA/CCA ratio: 1.2 LEFT: End Diastole cm/sec ----- Left CCA: 17.6 ----- Left ICA: 40.2 ----- Left ECA: 9.7 VERTEBRALS (direction of flow): Right Vertebral: Antegrade Left Vertebral: Antegrade Rhythm: Normal STEREO PLOTTER OPERATOR NOTES: No elevated velocities. No plaque seen IMPRESSION: No significant hemodynamic stenosis. Criteria for Assigning % of Stenosis / Diameter reduction (Estimation based on the indirect measurements of the internal carotid artery velocities (ICA PSV). 1. Normal (no stenosis)=ICA PSV < 125 cm/s: ratio < 2.0: ICA EDV<40 cm/s. 2. Less than 50% stenosis=ICA PSV < 125 cm/s: ratio < 2.0: ICA EDV<40 cm/s. 3. 50 to 69% stenosis=ICA PSV of 125 to 230 cm/s: ration 2.0 ? 4.0: ICA EDV 40-100 cm/s. 4. Greater than 70% stenosis to near occlusion= ICA PSV > 230 cm/s: ratio > 4.0: ICA EDV > 100 cm/s. 5. Near occlusion= ICA PSV velocities may be low or undetectable: variable ratio and ICA EDV. 6. Total occlusion=unable to detect flow.
[2023-03-25] MEDS: SYMBICORT 80-4.5 MCG INHALER INHALATION SCH ×2 (08:58→21:14)
[2023-03-25] MEDS: METOPROLOL TARTRATE 25 MG TAB PO SCH (09:36)
[2023-03-25] MEDS: ISOSORBIDE MONONITRATE ER 30 MG TAB.ER.24H PO SCH (09:36)
[2023-03-25] MEDS: ASPIRIN 325 MG TAB PO SCH (09:36)
[2023-03-25 11:42] LABS: Glucose,Whole Blood 127 mg/dL (70-110)
[2023-03-25 11:46] LABS: Chol/HDL Ratio 4.37 Ratio; LDL Cholesterol,Calculated 80.2 mg/dL (0.0-131.0)
--- NOTE | 2023-03-25 13:00 | CA ---
Transthoracic Echo Report Name: Judith Cohen Age: 67 Gender: F : 1955 Exam Date: 03/25/2023 08:51 Exam Location: [place] [facility] Ht (in): 70 Wt (lb): 190 Ordering Physician: Beto Redding MD Attending/Referring Phys: [id number], Miladis Phd Intern Saul Herrera Procedure CPT: Indications: Thrombus Cardiac Hx: Technical Quality: Fair Contrast 1: Total Dose (mL): Contrast 2: Total Dose (mL): MEASUREMENTS (Male / Female) Normal Values 2D ECHO LV Diastolic Diameter PLAX 4.5 cm 4.2 - 5.9 / 3.9 - 5.3 cm LV Systolic Diameter PLAX 3.0 cm IVS Diastolic Thickness 1.0 cm 0.6 - 1.0 / 0.6 - 0.9 cm LVPW Diastolic Thickness 1.4 cm 0.6 - 1.0 / 0.6 - 0.9 cm LV Relative Wall Thickness 0.5 RV Internal Dim ED PLAX 3.4 cm LVOT Diameter 2.0 cm Aortic Root Diameter 2.8 cm LA Systolic Diameter LX 3.1 cm 3.0 - 4.0 / 2.7 - 3.8 cm LV Diastolic Volume MOD BP 61.5 cm??? 67 - 155 / 56 - 104 cm??? LV Systolic Volume MOD BP 21.3 cm??? 22 - 58 / 19 - 49 cm??? LV Ejection Fraction MOD BP 65.3 % >= 55 % LV Diastolic Volume MOD 4C 60.7 cm??? LV Systolic Volume MOD 4C 22.2 cm??? LV Ejection Fraction MOD 4C 63.4 % LV Diastolic Length 4C 6.6 cm LV Systolic Length 4C 5.4 cm LV Diastolic Volume MOD 2C 58.6 cm??? LV Systolic Volume MOD 2C 20.3 cm??? LV Ejection Fraction MOD 2C 65.3 % LV Diastolic Length 2C 7.3 cm LV Systolic Length 2C 5.3 cm LA Volume 50.2 cm??? 18 - 58 / 22 - 52 cm??? DOPPLER AV Peak Velocity 173.4 cm/s AV Peak Gradient 12.0 mmHg LVOT Peak Velocity 98.6 cm/s LVOT Peak Gradient 3.9 mmHg AV Area Cont Eq pk 1.8 cm??? MV Peak Velocity 116.1 cm/s MV Peak Gradient 5.4 mmHg MV Mean Velocity 56.6 cm/s MV Mean Gradient 1.5 mmHg MV Velocity Time Integral 37.8 cm MR Peak Velocity 441.9 cm/s MR Peak Gradient 78.1 mmHg Mitral E Point Velocity 80.4 cm/s Mitral A Point Velocity 81.0 cm/s Mitral E to A Ratio 1.0 MV Deceleration Time 234.6 ms TR Peak Velocity 169.3 cm/s TR Peak Gradient 11.5 mmHg Right Ventricular Systolic Press 16.8 mmHg FINDINGS Left Ventricle Left ventricular ejection fraction is estimated at55-60 %.left ventricular cavity size normal. Normal left ventricular wall motion. Right Ventricle Normal right ventricular size. Right Atrium Normal right atrial size. Left Atrium Normal left atrial size. Mitral Valve Structurally normal mitral valve. Mild MR. Aortic Valve Trileaflet aortic valve. No aortic valve stenosis or regurgitation. Tricuspid Valve Structurally normal tricuspid valve. Trace TR. Pulmonic Valve Structurally normal pulmonic valve. No pulmonic regurgitation. Pericardium Normal pericardium. Aorta Normal size aortic root and proximal ascending aorta. CONCLUSIONS 1. Normal left ventricular size and systolic function 2. Mild mitral regurgitation with trace tricuspid regurgitation and no evidence of pulmonary hypertension Previewed by: Dr. Rosalind Moy MD (Electronically Signed) Final Date: 25 March 2023 12:59
--- NOTE | 2023-03-25 13:41 | MR ---
EXAMINATION TYPE: MR brain wo con DATE OF EXAM: 03/25/2023 12:57 PM COMPARISON: CT brain 03/24/2023. CLINICAL INDICATION:Female, 67 years old with history of Neuro deficit, acute, stroke suspected; FORMERLY [facility], TECHNIQUE: Multi planar, multi sequence imaging was performed through the brain. No gadolinium was gi misti. FINDINGS: The borja-white junctions, ventricular system, and cisterns appear unremarkable. Patchy areas of high T2 signal intensity are seen within the periventricular and subcortical white matter. Midline struct ures show no abnormality. Diffusion-weighted imaging shows restricted diffusion within the superior a spect of the right cerebellar hemisphere corresponding to prior CT brain. This is consistent with acu te/subacute infarct. There is associated T2/FLAIR hyperintensity. The susceptibility weighted images showed a single focus of microhemorrhage within the right parietal lobe. Remote infarct in the left c erebellar hemisphere and right jenkins radiata. Additional remote infarct of the right frontal and tien ateral parietal lobes. There is associated gliosis. Age-appropriate cerebral volume loss. The bone marrow signal is within normal limits. The paranasal sinuses are unremarkable. Bilateral aph francisco j. IMPRESSION: 1. Acute/subacute infarct involving the superior aspect of the right cerebellar hemisphere correspond ing to CT head 03/24/2023. 2. Nonspecific white matter changes, likely secondary to small vessel ischemic disease. 3. Remote ischemic injuries of the right frontal lobe, bilateral parietal lobes, left cerebellar karli sphere, and right jenkins radiata.
--- NOTE | 2023-03-25 14:09 | P.PN ---
Subjective Progress Note Date: 03/25/23 Hospital course Patient is a 67-year-old female with a past medical history of diabetes and cor onary disease who presents with dizziness. In the ED patient was found to have acute versus subacute CVA involving the right cerebellar hemisphere. Carotid ultrasound negative for significant stenosis. Echocardiogram showed normal LV function. MRI confirmed acute versus subacute infarct involving the superior aspect of the right cerebellar hemisphere. LDL is 80. Physical therapy recommended inpatient rehabilitation. Subjective This morning patient states that her nausea is improving. She states that she feels dizzy. 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 Echocardiogram shows normal LV function. LDL greater than 70. Resume her home dose atorvastatin 80 mg. Resume aspirin 325 mg by mouth daily. Started Plavix 75 mg daily. Hemoglobin A1c pending. Neurology on board Patient completed 24 hours of progressive hypertension so we'll resume all her home BP meds. We'll resume metoprolol 25 mg daily, lisinopril 5 mg daily, Imdur 30 mg daily. Blood pressure controlled this morning Resume sliding scale insulin Resume inhalers as needed CODE STATUS: FULL CODE. DVT prophylaxis: Encourage early ambulation Anticipated discharge place: [facility] facility Anticipated discharge time: Patient medically stable for discharge. Awaiting placement I have reviewed the following application packaging consultant notes: None I have reviewed the results of the following tests: Lipid panel I have ordered the following tests: None I have discussed the care of this patient with the following independent historian: None I have independently interpreted the following test below: MRI and echocardiogram and lipid panel I have discussed the management of this patient with the following physician: None This patient has a moderate risk of morbidity due to the following reasons: Acute stroke Objective - Vital Signs Vital signs: Vital Signs Temp 98.4 F 03/25/23 11:50 Pulse 82 03/25/23 11:50 Resp 17 03/25/23 11:50 BP 145/84 03/25/23 11:50 Pulse Ox 96 03/25/23 11:50 FiO2 Intake & Output 03/24/23 03/25/23 03/25/23 18:59 06:59 18:59 Intake Total 10 250 Balance 10 250 Weight 86.183 kg 86.183 kg Intake: IV 10 10 Invasive Line 1 10 10 Oral 240 Other: Voiding Method Toilet Toilet # Voids 1 1 - Labs CBC & Chem 7: 03/24/23 18:06 03/24/23 22:18 Labs: Abnormal Lab Results - Last 24 Hours (Table) 03/24/23 03/24/23 03/24/23 Range/Units 18:06 22:18 22:18 WBC 13.5 H (3.8-10.6) k/uL RBC 5.48 H (3.80-5.40) m/uL Hct 48.6 H (34.0-46.0) % Plt Count 60 L (150-450) k/uL Neutrophils # (Manual) 11.80 H (1.3-7.7) k/uL APTT 19.9 L (22.0-30.0) sec Glucose 145 H (74-99) mg/dL POC Glucose (mg/dL) (70-110) mg/dL ALT 39 H (4-34) U/L Triglycerides (0.00-149.00) mg/dL VLDL Cholesterol, Calc (5.00-40.00) mg/dL HDL Cholesterol (40.00-60.00) mg/dL 03/25/23 03/25/23 03/25/23 Range/Units 06:24 06:52 11:34 WBC (3.8-10.6) k/uL RBC (3.80-5.40) m/uL Hct (34.0-46.0) % Plt Count (150-450) k/uL Neutrophils # (Manual) (1.3-7.7) k/uL APTT (22.0-30.0) sec Glucose (74-99) mg/dL POC Glucose (mg/dL) 116 H 127 H (70-110) mg/dL ALT (4-34) U/L Triglycerides 216.00 H (0.00-149.00) mg/dL VLDL Cholesterol, Calc 43.20 H (5.00-40.00) mg/dL HDL Cholesterol 36.60 L (40.00-60.00) mg/dL
[2023-03-25] MEDS ORDERED: ATORVASTATIN 80 MG TAB PO SCH ×2 (14:30→21:00)
[2023-03-25] MEDS: lisinopriL 5 MG TAB PO SCH (16:03)
[2023-03-25] MEDS: CLOPIDOGREL 75 MG TAB PO SCH (16:03)
--- NOTE | 2023-03-25 16:11 | P.CNNES ---
History of Present Illness Consult date: 03/25/23 Requesting physician: Beto Redding Reason for Consult: CVA History of Present Illness: Patient is a 67-year-old right-handed female with history of diabetes, CAD, otherwise healthy, states that she woke up yesterday morning at 7 AM not feeling well, started throwing up, and felt the guerin were moving. She could not get to the phone. She waited in her home, until her daughter came back from work at around 3:30 PM when patient's daughter noticed that patient was having some slurred speech. Patient states that when she was trying to write numbers on a page, it was not coming out right. There was no numbness, tingling, focal weakness, facial droop, blurred vision or loss of vision. Patient could not wal k. Patient was taken to urgent care at 3:30 PM, and then was transferred to [facility], arrived here at 5:30 PM. Patient states that she went to sleep the night prior in usual state of health. She did wake up at 1 AM to go to the bathroom and was fine, and then went to sleep until she woke up at 7 AM with the above symptoms. Vital signs on arrival CT head CTA Patient was considered not a candidate for TPA because she came outside the window for TPA. Patient has history of diabetes for last 3 years, which is controlled. She does not have hypertension, but is on medication because of CAD. She has history of WI in the past, did not require any stent. She has never smoked, drinks alcohol occasionally, does have some eczema. Review of Systems Constitutional: Denies chills, Denies fever Eyes: denies blurred vision, denies diplopia, denies pain Ears: deny: decreased hearing, ear discharge Ears, nose, mouth and throat: Reports headache, Denies sinus pain, Denies sore throat Cardiovascular: Denies chest pain, Denies shortness of breath Respiratory: Denies cough, Denies excessive sputum Gastrointestinal: Reports diarrhea, Reports nausea, Reports vomiting, Denies abdominal pain Genitourinary: Denies dysuria, Denies hematuria, Denies urge incontinence Musculoskeletal: Reports neck pain, Denies low back pain, Denies myalgias Integumentary: Denies pruritus, Denies rash Neurological: Reports as per HPI, Denies confusion Psychiatric: Denies anxiety, Denies depression Endocrine: Denies fatigue, Denies weight change Hematologic/Lymphatic: Denies easy bleeding, Denies easy bruising Past Medical History Past Medical History: Asthma, Diabetes Mellitus Additional Past Medical History / Comment(s): type II DM, "heart attack" about 5 years ago - no stents History of Any Multi-Drug Resistant Organisms: None Reported Past Surgical History: Breast Surgery Additional Past Surgical History / Comment(s): BENIGN LUMP LEFT BREAST Past Anesthesia/Blood Transfusion Reactions: No Reported Reaction Past Psychological History: No Psychological Hx Reported Smoking Status: Never smoker Past Alcohol Use History: None Reported Past Drug Use History: None Reported Medications and Allergies Home Medications Medication Instructions Recorded Confirmed Type Multivitamins, Thera [Multivitamin 1 tab PO DAILY 07/29/16 03/25/23 History (formulary)] Isosorbide Mononitrate ER [Imdur] 30 mg PO DAILY #30 tab.er.24h 08/03/16 03/25/23 Rx Atorvastatin [Lipitor] 80 mg PO DAILY 08/22/21 03/25/23 History Metoprolol Tartrate [Lopressor] 25 mg PO DAILY 08/22/21 03/25/23 History Albuterol Nebulized [Ventolin 2.5 mg INHALATION RT-QID PRN 07/02/22 07/02/22 History Nebulized] Dulaglutide [Trulicity] 1.5 mg SQ MO 07/02/22 07/02/22 History Dupilumab [Dupixent Syringe] 300 mg SQ Q15D 07/02/22 03/25/23 History Fluticasone Propion/Salmeterol 1 puff INHALATION RT-BID 07/02/22 07/02/22 History [Advair 100-50 Diskus] Lisinopril [Prinivil] 5 mg PO DAILY 07/02/22 03/25/23 History Nitroglycerin Sl Tabs [Nitrostat] 0.4 mg SL Q5M PRN 07/02/22 07/02/22 History traZODone HCL [Trazodone HCl] 375 mg PO HS 07/02/22 03/25/23 History Allergies Allergy/AdvReac Type Severity Reaction Status Date / Time metformin Allergy Anaphylaxis Verified 03/24/23 17:36 Physical Examination - Vital Signs Vital Signs: Vital Signs Temp Pulse Pulse Resp BP BP Pulse Ox 03/25/23 11:50 98.4 F 82 17 145/84 96 03/25/23 11:17 95 03/25/23 08:25 98.8 F 81 17 129/75 94 L 03/25/23 08:00 81 17 03/25/23 04:00 98.1 F 86 16 136/68 96 03/25/23 00:00 97.9 F 69 16 147/83 97 03/24/23 23:55 78 18 124/60 96 03/24/23 22:35 74 18 136/78 95 03/24/23 22:15 80 18 136/78 94 L 03/24/23 17:33 98.5 F 65 18 119/77 99 Intake and Output 03/25/23 03/25/23 03/25/23 06:59 14:59 22:59 Intake Total 10 250 Balance 10 250 Intake: IV 10 10 Invasive Line 1 10 10 Oral 240 Other: Voiding Method Toilet Toilet # Voids 1 1 Weight 86.183 kg Patient is an elderly female, very pleasant, in no acute distress. Patient is alert awake oriented to time place and person. Patient can name and repeat very well. No aphasia, although patient has mild dysarthria. Attention, concentration and fund of knowledge is adequate. On cranial nerve examination, pupils are equal, round and reacting to light, visual chapin are full on confrontation, with no neglect on double simultaneous stimulation. Extraocular muscles are intact with no nystagmus. Face is symmetric, tongue protrudes to the midline. Palatal elevation and sensation normal, hearing and shoulder shrug normal, facial sensation normal. On muscle strength testing, there is no pronator drift and the strength is normal in arms and legs distally and proximally. Deep tendon reflexes are (right/left) biceps 1/1+, brachioradialis 1/1+, knees are trace/trace, plantars downgoing bilaterally. Sensory to touch is equal with no neglect on double simultaneous stimulation. Cerebellar function revealed mild to moderate ataxia for [id number] on the right, but not on the left. No dysdiadochokinesia. No ataxia for [id number] testing on either side. Tone and bulk of muscles normal. Gait deferred.. On general examination, there is no carotid bruit or murmur, S1-S2 audible. Chest is clear on consultation. Abdomen is soft nontender. No organomegaly, bowel sounds present. Peripheral pulses are present. No edema. Results - Laboratory Findings CBC and BMP: 03/24/23 18:06 03/24/23 22:18 Abnormal Lab Findings: Abnormal Labs 03/24/23 03/24/23 03/24/23 18:06 22:18 22:18 WBC 13.5 H RBC 5.48 H Hct 48.6 H Plt Count 60 L Neutrophils # (Manual) 11.80 H APTT 19.9 L Glucose 145 H POC Glucose (mg/dL) ALT 39 H Triglycerides VLDL Cholesterol, Calc HDL Cholesterol 03/25/23 03/25/23 03/25/23 06:24 06:52 11:34 WBC RBC Hct Plt Count Neutrophils # (Manual) APTT Glucose POC Glucose (mg/dL) 116 H 127 H ALT Triglycerides 216.00 H VLDL Cholesterol, Calc 43.20 H HDL Cholesterol 36.60 L Assessment and Plan Assessment: * Acute cerebellar stroke presenting with nausea, vomiting, slightly slurred sp eech, dizziness and imbalance. * Hypertension * Diabetes * Hyperlipidemia * CAD Plan: * MRI of the brain without contrast confirmed acute/subacute infarct involving the superior aspect of the right cerebellar hemisphere corresponding to CT head 03/24/2023. Nonspecific white matter changes, likely secondary to small vessel ischemic disease. Remote ischemic injuries of the right frontal lobe, bilateral parietal lobes, left cerebellar hemisphere, right jenkins radiata. I personally reviewed MRI, agree with the findings. * 2-D echo revealed normal left ventricular size and systolic function with EF 55-60%. Mild MR with trace TR. Left atrial size normal. * Carotid Doppler revealed no significant stenosis of bilateral ICA. Antegrade flow in both vertebral arteries. * Fasting a.m. lipid panel cholesterol 160, LDL 80.2, HDL 36 and triglycerides 216. Continue Lipitor 80 mg daily. * Hemoglobin A1c pending * Permissive hypertension for next 24-48 hours * Agree with starting dual antiplatelet medication for 21 days, then may stop Plavix and continue aspirin indefinitely. * Close neuro checks as per protocol. * Telemetry monitoring rule out any arrhythmia * Agree with rehab consult for possible inpatient rehab. * DVT prophylaxis: Heparin 5000 units subcu every 8 hours * Neurology will continue ot follow. Thank you for the consult.
[2023-03-25 16:33] LABS: Glucose,Whole Blood 240 mg/dL (70-110)
[2023-03-25] MEDS ORDERED: ACETAMINOPHEN TAB 325 MG TAB PO PRN (18:31)
[2023-03-25 20:06] LABS: Glucose,Whole Blood 160 mg/dL (70-110)
[2023-03-26 06:29] LABS: Glucose,Whole Blood 203 mg/dL (70-110)
[2023-03-26] MEDS: INSULIN ASPART (NovoLOG) 100 UNIT/ML VIAL SQ SCH ×2 (06:45→12:44)
[2023-03-26] MEDS: SYMBICORT 80-4.5 MCG INHALER INHALATION SCH (09:17)
[2023-03-26] MEDS: METOPROLOL TARTRATE 25 MG TAB PO SCH (10:14)
[2023-03-26] MEDS: ASPIRIN 325 MG TAB PO SCH (10:14)
[2023-03-26] MEDS: CLOPIDOGREL 75 MG TAB PO SCH (10:14)
[2023-03-26] MEDS: ISOSORBIDE MONONITRATE ER 30 MG TAB.ER.24H PO SCH (10:14)
[2023-03-26] MEDS: lisinopriL 5 MG TAB PO SCH (10:14)
[2023-03-26 11:43] LABS: Glucose,Whole Blood 146 mg/dL (70-110)
--- NOTE | 2023-03-26 12:55 | P.PN ---
Subjective Progress Note Date: 03/26/23 Hospital course Patient is a 67-year-old female with a past medical history of diabetes and cor onary disease who presents with dizziness. In the ED patient was found to have acute versus subacute CVA involving the right cerebellar hemisphere. Carotid ultrasound negative for significant stenosis. Echocardiogram showed normal LV function. MRI confirmed acute versus subacute infarct involving the superior aspect of the right cerebellar hemisphere. LDL is 80. Physical therapy recommended inpatient rehabilitation. Subjective Patient says that her nausea has resolved. Patient states that she still gets dizzy when she tries to walk. 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 Discussed with case management specialist about placement of a IPR Resume aspirin and Plavix and statin Reviewed progress note from neurology Resume sliding scale insulin Resume inhalers as needed CODE STATUS: FULL CODE. DVT prophylaxis: Encourage early ambulation Anticipated discharge place: [facility] Anticipated discharge time: Patient medically stable for discharge. Awaiting placement I have reviewed the following rn lactation consultant notes: Neurology I have reviewed the results of the following tests: Lipid panel I have ordered the following tests: None I have discussed the care of this patient with the following independent historian: None I have independently interpreted the following test below: none I have discussed the management of this patient with the following physician: None This patient has a moderate risk of morbidity due to the following reasons: Acute stroke Objective - Vital Signs Vital signs: Vital Signs Temp 98.2 F 03/26/23 04:00 Pulse 76 03/26/23 04:00 Resp 16 03/26/23 04:00 BP 135/89 03/26/23 04:00 Pulse Ox 96 03/26/23 04:00 FiO2 Intake & Output 03/25/23 03/26/23 03/26/23 18:59 06:59 18:59 Intake Total 840 10 118 Balance 840 10 118 Intake: IV 10 10 Invasive Line 1 10 10 Oral 830 118 Other: Voiding Method Toilet Toilet # Voids 1 1 - Labs CBC & Chem 7: 03/24/23 18:06 03/24/23 22:18 Labs: Abnormal Lab Results - Last 24 Hours (Table) 03/25/23 03/25/23 03/26/23 Range/Units 16:31 19:58 06:14 POC Glucose (mg/dL) 240 H 160 H 203 H (70-110) mg/dL 03/26/23 Range/Units 11:41 POC Glucose (mg/dL) 146 H (70-110) mg/dL
--- NOTE | 2023-03-26 14:19 | P.DS ---
Providers Date of admission: 03/24/23 22:24 Attending physician: Stella Garcia MD Consults: 03/24/23 22:24 Consult Physician Routine Consulting Provider: Alayna Ramos Consult Reason/Comments: CVA Do you want consulting provider notified?: Yes 03/25/23 14:25 Consult Physician Routine Consulting Provider: Brett Umaña Consult Reason/Comments: eval for IPR Do you want consulting provider notified?: Yes Primary care physician: Chris Chaney [facility] Course: Discharge Diagnosis: Acute cerebellar stroke Thrombocytopenia Diabetes mellitus Intermittent asthma History of coronary artery disease Hypertension Hospital Course: Patient is a 67-year-old female with a past medical history of diabetes and coronary disease who presents with dizziness. In the ED patient was found to have acute versus subacute CVA involving the right cerebellar hemisphere. Carotid ultrasound negative for significant stenosis. Echocardiogram showed normal LV function. MRI confirmed acute versus subacute infarct involving the superior aspect of the right cerebellar hemisphere. LDL is 80. Patient started aspirin and Plavix and statin. Physical therapy initiated recommended IPR. Physical therapy worked with her again and then stated she was stable to go home with a cane. Patient is amenable to the plan. Patient deemed stable for discharge. branch general manager will arrange for a cane. Patient seen and examined at bedside on 03/26/2023.[] Vital signs reviewed and stable. General: [non toxic], [no distress], [appears at stated age] Derm: [warm], [dry] Head: [atraumatic], [normocephalic], [symmetric] Eyes: [EOMI], [no lid lag], [anicteric sclera] Mouth: [no lip lesion], [mucus membranes moist] Cardiovascular: [S1S2 reg], [no murmur], [positive posterior tibial pulse bilateral], Lungs: [CTA bilateral], [no rhonchi, no rales] , [no accessory muscle use] Abdominal: [soft], [ nontender to palpation], [no guarding], [no appreciable organomegaly] Ext: [no gross muscle atrophy], [no edema], [no contractures] Neuro: [ CN II-XI grossly intact], [no focal neuro deficits] Psych: [Alert], [oriented], [appropriate affect] A total of [33] minutes of time were spent preparing this complex discharge summary . Patient Condition at Discharge: Stable Plan - Discharge Summary Discharge Rx Participant: Yes New Discharge Prescriptions: New Aspirin 81 mg PO DAILY 30 Days #30 tab Clopidogrel [Plavix] 75 mg PO DAILY #30 tab Continue Multivitamins, Thera [Multivitamin (formulary)] 1 tab PO DAILY Isosorbide Mononitrate ER [Imdur] 30 mg PO DAILY #30 tab.er.24h Metoprolol Tartrate [Lopressor] 25 mg PO DAILY Atorvastatin [Lipitor] 80 mg PO DAILY traZODone HCL 375 mg PO HS Lisinopril [Prinivil] 5 mg PO DAILY Dulaglutide [Trulicity] 1.5 mg SQ MO Nitroglycerin Sl Tabs [Nitrostat] 0.4 mg SL Q5M PRN PRN Reason: Chest Pain Dupilumab [Dupixent Syringe] 300 mg SQ Q15D Fluticasone Propion/Salmeterol [Advair 100-50 Diskus] 1 puff INHALATION RT- BID Albuterol Nebulized [Ventolin Nebulized] 2.5 mg INHALATION RT-QID PRN PRN Reason: Shortness Of Breath Discharge Medication List Multivitamins, Thera [Multivitamin (formulary)] 1 tab PO DAILY 07/29/16 [History] Isosorbide Mononitrate ER [Imdur] 30 mg PO DAILY #30 tab.er.24h 08/03/16 [Rx] Atorvastatin [Lipitor] 80 mg PO DAILY 08/22/21 [History] Metoprolol Tartrate [Lopressor] 25 mg PO DAILY 08/22/21 [History] Albuterol Nebulized [Ventolin Nebulized] 2.5 mg INHALATION RT-QID PRN 07/02/22 [History] Dulaglutide [Trulicity] 1.5 mg SQ MO 07/02/22 [History] Dupilumab [Dupixent Syringe] 300 mg SQ Q15D 07/02/22 [History] Fluticasone Propion/Salmeterol [Advair 100-50 Diskus] 1 puff INHALATION RT-BID 07/02/22 [History] Lisinopril [Prinivil] 5 mg PO DAILY 07/02/22 [History] Nitroglycerin Sl Tabs [Nitrostat] 0.4 mg SL Q5M PRN 07/02/22 [History] traZODone HCL 375 mg PO HS 07/02/22 [History] Aspirin 81 mg PO DAILY 30 Days #30 tab 03/26/23 [Rx] Clopidogrel [Plavix] 75 mg PO DAILY #30 tab 03/26/23 [Rx] Follow up Appointment(s)/Referral(s): Chris Banks MD [Primary Care Provider] - 1-2 days
[2023-03-26 15:45] VITALS: TEMP 98.5
--- NOTE | 2023-03-26 15:46 | P.CONS ---
History of Present Illness - Reason for Consult Consult date: 03/26/23 rehab recommendations - Chief Complaint CVA - History of Present Illness Ms Judith Cohen is a right handed, single, who lives alone in a single story apartment, with 4 STFD. Prior to admission, she was ambulating without an assistive device. She was independent for basic/advanced ADLs. Current driving: yes Retired: yes/no. Support system: Daughter She presented to [facility] on 03/24/23 with complaints of nausea and slurred speech. Patient went to bed feeling her " normal self". She did get up to go the bathroom around 1 am and felt fine. When she woke up at 7 am the next morning, she felt nausea, vomited and felt like guerin were moving. She was unable to call for help, waited until her daughter stopped over. Patient's daughter took her to an urgent care around 3:30 pm. She was then transferred to [facility] at approximately 5:30 pm. She was out of the TPA window. CT head and CTA were completed. no significant ICA stenosis. MRI brain completed, both CT and MRI showed right superior cerebellar CVA. She was seen by Neurology, noted to have ataxia and dysmetria. PM&R consulted for rehab recommendations. Patient was seen by therapies; is min assist with bathing, LB dressing, toileting, transfers, bed mobility, gait 120 ft 2ww. 03/26/23: Patient worked with therapy, feels she is doing well enough to return home and does not need IPR Past Medical History Past Medical History: Asthma, Diabetes Mellitus Additional Past Medical History / Comment(s): type II DM, "heart attack" about 5 years ago - no stents History of Any Multi-Drug Resistant Organisms: None Reported Past Surgical History: Breast Surgery Additional Past Surgical History / Comment(s): BENIGN LUMP LEFT BREAST Past Anesthesia/Blood Transfusion Reactions: No Reported Reaction Past Psychological History: No Psychological Hx Reported Smoking Status: Never smoker Past Alcohol Use History: None Reported Past Drug Use History: None Reported Medications and Allergies Home Medications Medication Instructions Recorded Confirmed Type Multivitamins, Thera [Multivitamin 1 tab PO DAILY 07/29/16 03/25/23 History (formulary)] Isosorbide Mononitrate ER [Imdur] 30 mg PO DAILY #30 tab.er.24h 08/03/16 03/25/23 Rx Atorvastatin [Lipitor] 80 mg PO DAILY 08/22/21 03/25/23 History Metoprolol Tartrate [Lopressor] 25 mg PO DAILY 08/22/21 03/25/23 History Albuterol Nebulized [Ventolin 2.5 mg INHALATION RT-QID PRN 07/02/22 07/02/22 History Nebulized] Dulaglutide [Trulicity] 1.5 mg SQ MO 07/02/22 07/02/22 History Dupilumab [Dupixent Syringe] 300 mg SQ Q15D 07/02/22 03/25/23 History Fluticasone Propion/Salmeterol 1 puff INHALATION RT-BID 07/02/22 07/02/22 History [Advair 100-50 Diskus] Lisinopril [Prinivil] 5 mg PO DAILY 07/02/22 03/25/23 History Nitroglycerin Sl Tabs [Nitrostat] 0.4 mg SL Q5M PRN 07/02/22 07/02/22 History traZODone HCL 375 mg PO HS 07/02/22 03/25/23 History Aspirin 81 mg PO DAILY 30 Days #30 tab 03/26/23 Rx Clopidogrel [Plavix] 75 mg PO DAILY #30 tab 03/26/23 Rx Allergies Allergy/AdvReac Type Severity Reaction Status Date / Time metformin Allergy Anaphylaxis Verified 03/24/23 17:36 Physical Exam Vitals: Vital Signs Temp Pulse Resp BP Pulse Ox 03/26/23 04:00 98.2 F 76 16 135/89 96 03/26/23 00:00 98.3 F 70 16 120/74 96 03/25/23 20:00 98.5 F 76 16 119/76 95 03/25/23 16:00 98.7 F 74 17 118/77 95 03/25/23 14:00 82 17 03/25/23 11:50 98.4 F 82 17 145/84 96 03/25/23 11:17 95 Intake and Output 03/25/23 03/26/23 03/26/23 22:59 06:59 14:59 Intake Total 600 118 Balance 600 118 Intake: IV 10 Invasive Line 1 10 Oral 590 118 Other: Voiding Method Toilet Toilet # Voids 1 General: The patient appears stated age, comfortable, NAD Head: Normocephalic, atraumatic. Eyes: Symmetric Ears: Symmetric. Hearing within normal limits. Mouth: Clear. Neck: Supple. Cardiac: Regular rate and rhythm. Calves supple, non tender, no edema Lungs: Breathing comfortably on RA. Chest symmetric. Abdomen: Soft, nontender. Extremities: Arthritic changes consistent with age. Tone normal. Neurological: Alert and oriented x . Speech is clear and fluent without paraphasic errors Cranial nerves: CN II-XII: intact. Sensation: Intact and symmetrical limbs. Musculoskeletal: ROM WFL EXCEPT: MMT UE Sh Abd EE EF FABD WE HG Right Left MMT LE HF KE DF EHL Right Left Reflexes Biceps Triceps Brachioradialis Patella Achilles Babinski Hoffmans Right Left Skin: Skin intact where visible to head, neck, and bilateral upper and lower extremities EXCEPT: Psych: Calm, cooperative Results CBC & Chem 7: 03/24/23 18:06 03/24/23 22:18 Labs: Abnormal Lab Results - Last 24 Hours (Table) 03/25/23 03/25/23 03/25/23 Range/Units 06:52 11:34 16:31 POC Glucose (mg/dL) 127 H 240 H (70-110) mg/dL Triglycerides 216.00 H (0.00-149.00) mg/dL VLDL Cholesterol, Calc 43.20 H (5.00-40.00) mg/dL HDL Cholesterol 36.60 L (40.00-60.00) mg/dL 03/25/23 03/26/23 Range/Units 19:58 06:14 POC Glucose (mg/dL) 160 H 203 H (70-110) mg/dL Triglycerides (0.00-149.00) mg/dL VLDL Cholesterol, Calc (5.00-40.00) mg/dL HDL Cholesterol (40.00-60.00) mg/dL MRI - head: report reviewed (Right superior cerebellar CVA) Assessment and Plan Assessment: # Right superior cerebellar CVA, non dominant -reviewed neurology note and therapy notes -ASA 325 mg QD and Plavix, per neuro notes dual antiplatelet for 21 days, then d/c Plavix, continue ASA # Ataxia -fall precautions # Dysarthria # Diabetes Mellitus # Bowel/ Bladder: Nursing to monitor and report concerns if any. # Diet- regular diet, thin liquids # Skin/wound: Skin/Wound care to follow as needed # Pain Management Tylenol 650 mg Q 6 prn # DVT Prophylaxis: SQ Heparin # Comorbidities: h/o VT, CAD, HTN # Your medical dx and mgt Goals: Modified Independent mobility and ADLS both basic and advanced; increased functional mobility/strength; increased balance, safety, endurance. Improvement in medical issues through your care. Barriers: lives alone, stairs at home, ataxia Discharge recommendation: Recommending IPR for continued rehab. Patient was independent prior, is very motivated and has good support from her daughter. Will need insurance authorization for IPR. Patient seen and examined in coordination with Dr. Correa Plan: patient discharged before I got to the hospital. She is home. No needs for IPR. Humza Correa MD
[2023-03-26 18:32] VITALS: BP 111/72; PULSE 79; RESP 16
== END 2023-03-26 17:11 | disposition home or self-care (01) | DRG 66 ==
LOC: EC 17:30 → 3SCARD 22:24
PROVIDERS: ADMIT Internal Medicine; ATTEND Internal Medicine
DX: I63.541 Cerebral infarction due to unspecified occlusion or stenosis of right cerebellar artery (principal); D69.6 Thrombocytopenia, unspecified; J45.20 Mild intermittent asthma, uncomplicated; I10 Essential (primary) hypertension; R11.2 Nausea with vomiting, unspecified; R47.81 Slurred speech; I08.1 Rheumatic disorders of both mitral and tricuspid valves; R00.1 Bradycardia, unspecified; I27.20 Pulmonary hypertension, unspecified; I25.10 Atherosclerotic heart disease of native coronary artery without angina pectoris; E78.5 Hyperlipidemia, unspecified; E11.9 Type 2 diabetes mellitus without complications; I25.2 Old myocardial infarction; Z79.02 Long term (current) use of antithrombotics/antiplatelets; Z79.82 Long term (current) use of aspirin; Z74.1 Need for assistance with personal care; Z79.899 Other long term (current) drug therapy; Z88.8 Allergy status to other drugs, medicaments and biological substances; Z79.85 Long-term (current) use of injectable non-insulin antidiabetic drugs
CPT/HCPCS: 36415; 70450; 70551; 80053; 80061; 83036; 85025; 85610; 85730; 93005; 93306; 93880; 94760; 96374; 99291

== ENCOUNTER 2023-06-20 11:50 | Day surgery (SDC) | payer MEDICARE ==
[2023-06-20] MEDS ORDERED: SODIUM CHLORIDE 0.9% 500 ML 500 ML IV ONE (11:56)
[2023-06-20 12:09] LABS: Glucose,Whole Blood 163 mg/dL (70-110)
[2023-06-20] MEDS ORDERED: fentaNYL (PF) 50 MCG/ML 2 ML AMP ONE (12:57)
[2023-06-20] MEDS: BENZOCAINE SPRAY 1 CAN TOPICAL ONE ×2 (13:05→13:10)
[2023-06-20] MEDS ORDERED: fentaNYL (PF) 50 MCG/ML 2 ML AMP IVP ONE (13:11)
[2023-06-20] MEDS ORDERED: MIDAZOLAM 2 MG/2 ML VIAL IVP ONE ×2 (13:11→13:15)
[2023-06-20 13:23] VITALS: RESP 16
--- NOTE | 2023-06-20 13:25 | P.PCN ---
Date of Procedure: 06/20/23 Operative Findings: TRANSESOPHAGEAL ECHOCARDIOGRAM FACILITY MAINTENANCE TECHNICIAN: SHAWN ACOSTA MD, RPVI INDICATION: Rule out PFO SEDATION: Conscious sedation COMPLICATION: None LEVEL OF SEDATION Moderate sedation length of 12 minutes PROCEDURE DESCRIPTION: After obtaining an informed consent, the patient was brought to transesophageal echocardiogram room. Pulse oximetry and heart monitors were attached to the patient. The patient throat was sprayed using lidocaine. The patient was turned into left lateral position. After that a bite guard was placed. After an appropriate conscious sedation was initiated, the transesophageal echocardiogram was advanced through a bite guard into the mid esophagus. A 2-D echocardiogram images, color Doppler images, continuous wave images, pulse-wave images, of various cardiac structure were performed. After that the transesophageal echocardiogram probe was advanced into the stomach and fixed to obtain transgastric view was. The probe was brought into the mid esophagus. Inter-atrial septum was interrogated using 2D images, color Doppler images, and then contrast study. After that transesophageal echocardiogram was withdrawn out and upon withdrawing the descending thoracic aorta all the way up to the arch was evaluated. FINDING: The left ventricular dimension and systolic function appeared to be within normal limits. The right ventricular dimension and systolic function appeared to be within normal limits. Left atrium appeared to be mildly dilated. The left atrial appendage appeared to be intact. The interatrial septum appears to be intact. The aortic valve is trileaflet valve is no stenosis or regurgitation me the mitral valve appeared to be normal was mild to moderate MR. Normal tricuspid valve and pulmonic valve CONCLUSION: 1. No evidence of cardiac source of embolization 2. Intact interatrial septum an intact left atrial appendage 3. Normal biventricular dimension and systolic function 4. [id number] mitral regurgitation 5. Trileaflet aortic valve with no stenosis or regurgitation 6. No evidence of pericardial effusion
[2023-06-20 15:04] VITALS: BP 105/61; PULSE 64
== END 2023-06-20 14:45 | disposition home or self-care (01) ==
LOC: CATHCVL 11:50
PROVIDERS: ATTEND Internal Medicine Interventional Cardiology
DX: I25.10 Atherosclerotic heart disease of native coronary artery without angina pectoris (principal); I34.0 Nonrheumatic mitral (valve) insufficiency; I10 Essential (primary) hypertension; E78.5 Hyperlipidemia, unspecified; E11.9 Type 2 diabetes mellitus without complications; Z79.899 Other long term (current) drug therapy; Z86.73 Personal history of transient ischemic attack (TIA), and cerebral infarction without residual deficits
CPT/HCPCS: 93312; 93320; 93325; J2250; J3010

== ENCOUNTER → 2023-08-29 | Outpatient (CLI) | payer MEDICARE ==
--- NOTE | 2023-09-01 08:52 | MM ---
Reason for Exam: Screening (asymptomatic). Last screening mammogram was performed 12 month(s) ago. Patient History: Menarche at age 11. First Full-Term at age 19. Postmenopausal. Patient used Hormonal Contraceptives for 10 years. Benign Excisional Biopsy on the left side. 10/07/2013, Benign Core Biopsy on the left side. 08/04/2012, Benign Core Biopsy on the left side. 08/04/2012, Benign Core Biopsy on the right side. Mother had breast cancer, age 65. Sister had breast cancer, age 57. Sister had breast cancer, age 67. Risk Values: Maida 5 year model risk: 10.3%. NCI Lifetime model risk: 28.2%. Prior Study Comparison: 07/25/2020 Bilateral Screening Mammogram, [facility]. 08/23/2021 Bilateral Screening Mammogram, [facility]. 08/28/2022 Bilateral MG 3D screening mammo w/cad, [facility]. Tissue Density: The breast tissue is heterogeneously dense. This may lower the sensitivity of mammography. Findings: Analyzed By CAD. Bilateral breast biopsy clips. There is no suspicious group of microcalcifications or new suspicious mass. Overall Assessment: Benign, BI-RAD 2 Management: Screening Mammogram of both breasts in [address] [facility] will attempt to contact patient to return for supplemental views and ultrasound if indicated. Patient should continue monthly self-breast exams. A clinical breast exam by your physician is recommended on an annual basis. This exam should not preclude additional follow-up of suspicious palpable abnormalities. Note on Maida scores and lifetime risk: 1. A Maida score greater than 3% is considered moderate risk. If this is the case, consider specialist referral to assess eligibility for a risk reducing agent. 2. If overall lifetime risk for the development of breast cancer is 20% or higher, the patient may qualify for future screening with alternating mammogram and breast MRI. Electronically signed and approved by: Beto Valles DO
== END | disposition home or self-care (01) ==
LOC: RADMAMWWP 14:08
PROVIDERS: ATTEND Family Medicine
DX: Z12.31 Encounter for screening mammogram for malignant neoplasm of breast (principal); Z78.0 Asymptomatic menopausal state; Z80.3 Family history of malignant neoplasm of breast
CPT/HCPCS: 77063; 77067

== ENCOUNTER → 2024-08-31 | Outpatient (CLI) | payer MEDICARE ==
--- NOTE | 2024-09-01 09:59 | MM ---
Reason for Exam: Screening (asymptomatic). Last screening mammogram was performed 12 month(s) ago. Patient History: Menarche at age 11. First Full-Term at age 19. Patient used Hormonal Contraceptives for 10 years. Benign Excisional Biopsy on the left side. 10/07/2013, Benign Core Biopsy on the left side. 08/04/2012, Benign Core Biopsy on the left side. 08/04/2012, Benign Core Biopsy on the right side. Mother had breast cancer, age 65. Sister had breast cancer, age 57. Sister had breast cancer, age 67. Risk Values: Maida 5 year model risk: 10.3%. NCI Lifetime model risk: 27.1%. Prior Study Comparison: 08/23/2021 Bilateral Screening Mammogram, [facility]. 08/28/2022 Bilateral MG 3D screening mammo w/cad, [facility]. 08/29/2023 Bilateral MG 3D screening mammo w/cad, [facility]. Tissue Density: The breasts are heterogeneously dense, which may obscure small masses. Findings: Analyzed By CAD. There is no suspicious group of microcalcifications or new suspicious mass in either breast. Overall Assessment: Benign, BI-RAD 2 Management: Screening Mammogram of both breasts in 1 year. . Patient should continue monthly self-breast exams. A clinical breast exam by your physician is recommended on an annual basis. This exam should not preclude additional follow-up of suspicious palpable abnormalities. Note on Maida scores and lifetime risk: 1. A Maida score greater than 3% is considered moderate risk. If this is the case, consider specialist referral to assess eligibility for a risk reducing agent. 2. If overall lifetime risk for the development of breast cancer is 20% or higher, the patient may qualify for future screening with alternating mammogram and breast MRI. [facility], , 09/01/2024 9:56 AM. Electronically signed and approved by: Gerard Sheridan M.D. Radiologis
== END | disposition home or self-care (01) ==
LOC: RADMAMWWP 10:35
PROVIDERS: ATTEND Family Medicine
DX: Z12.31 Encounter for screening mammogram for malignant neoplasm of breast (principal); Z80.3 Family history of malignant neoplasm of breast; R92.333 Mammographic heterogeneous density, bilateral breasts
CPT/HCPCS: 77063; 77067